=== PATIENT | female | born 1990 | race Hispanic/Latino ===

== ENCOUNTER 2019-01-30 11:47 | Emergency (ER) | payer MEDICAID, SELFPAY ==
[2019-01-30 11:48] VITALS: BP 141/89; PULSE 103; RESP 17; TEMP 36.9; O2SAT 100; BMI 31.4
--- NOTE | 2019-01-30 12:13 | ED.VISSUMM ---
- ER Visit Summary Date of Service: 01/30/19 Chief Complaint: [Vomiting] History of Present Illness: The patient is a 28 F [presents the emergency department with vomiting that started around 6 AM today. Patient denies any diarrhea. Patient states that she think she is thrown up over 100 times. Patient does not believe that she is as she does have an IUD and does not have periods. She denies any abdominal pain. She denies urinary symptoms. She denies any fever. Patient states that her 8-year-old son had a similar illness last week. Patient denies eating any unusual or undercooked foods.] Physical Examination: [HEENT-PERRLA, EOMI. Cranial nerves II through XII grossly intact. TMs clear. Mucous membranes moist. No adenopathy. Cardiovascular-regular rate and rhythm without murmur or ectopy Lungs-clear to auscultation, chest wall stable without crepitus or subcu emphysema Abdomen-normoactive bowel sounds, soft, nontender, no rebound or rigidity, no peritoneal signs. Extremities-intact ?4, normal range of motion, normal pulses, atraumatic] Test Results: [CBC with differential obtained showed a white count of 19.4, hemoglobin 13.9, hematocrit 40, placed 239. Chemistries unremarkable.] Emergency Department Course and Treatment: [Given a liter normal same fluid bolus. Patient was given Phenergan 12.5 mill grams IV. Patient had no further vomiting and she was given a p.o. challenge.] On repeat examination she does not have any abdominal pain. Treatment Plan: [Patient likely has a viral etiology to her vomiting.] Given a prescription for Zofran ODT as well as Phenergan suppositories. Disposition: [Discharged home in stable condition] Impression: [Vomiting-suspect viral etiology] This note was generated with [employer] dictation software. It may contain incorrect words, spelling, and punctuation that were not noted in review of the chart prior to signing ED Disposition - Plan for ED Patient: Referrals: Care Physician,No Primary [Primary Care Provider] -
[2019-01-30 12:27] LABS: Absolute Lymphocyte Count 1.35 X10^3/uL (0.83-4.51); Absolute Neutrophil Count 17.2 X10^3/uL (2.0-7.7); Basophil# 0.04 X10^3/uL; Basophil% 0.2 % (0-1); Eosinophil# 0.05 X10^3/uL; Eosinophils% 0.3 % (0-5); Hematocrit 40.5 % (37-47); Hemoglobin 13.9 g/dL (12.0-15.0); Lymphocyte # 1.35 X10^3/ul (4.0); Mean Corp Hgb Conc 34.3 g/dL (32-36); Mean Corpuscular Hgb 30.5 pg (27.0-32.0); Mean Corpuscular Volume 88.8 fL (81-99); Mean Platelet Vol. 9.8 fl (6.2-12.0); Monocyte# 0.61 X10^3/uL; Monocyte% 3.1 % (0-10); NRBC Flagged by Analyzer 0 % (0-5); Neutrophil # 17.23 X10^3/uL (2.7-7.7); Neutrophil % 88.7 % (47-70); Platelet Count 239 K/mm3 (150-450); RBC Distribution Width CV 12.7 % (11.6-14.6); RBC Distribution Width SD 41.5 fl (35.1-43.9); Red Blood Count 4.56 M/mm3 (4.2-5.4); White Blood Count 19.4 K/mm3 (4.4-11.0)
[2019-01-30] MEDS: proMETHazine 25 MG/ML Syringe 12.5 MG IV (12:27)
[2019-01-30] MEDS: 0.9% Normal Saline 1,000 ML 1000 ML IV (12:27)
[2019-01-30 12:42] LABS: Anion Gap 6 (5-15); BUN 11 mg/dL (7-18); BUN/Creat Ratio 13.3 RATIO (10-20); Calcium,Total 8.8 mg/dL (8.5-10.1); Chloride 110 mmol/L (98-107); Creatinine, Serum 0.83 mg/dL (0.55-1.02); EST Glomerular Filtration Rate 86 mL/min (>60); Est Glom Filt Rate - Afr Amer 104 mL/min (>60); Estimated Creatinine Clearance 71.84 ml/min; Glucose 106 mg/dL (74-106); Potassium 3.8 mmol/L (3.5-5.1); Sodium Level 143 mmol/L (136-145)
--- NOTE | 2019-01-30 13:17 | ED.DEP ---
ED Disposition - Plan for ED Patient: Instructions: DIET, Vomiting or Diarrhea [6yr-Adult], VOMITING (5y-Adult) Prescriptions: proMETHazine suppository [Phenergan Suppository] 25 mg RECTAL Q6H PRN PRN #6 suppos. PRN Reason: Nausea Prescription Printed Ondansetron [Zofran Odt] 4 mg PO Q8H PRN PRN #10 tab PRN Reason: Nausea Prescription Printed Referrals: Care Physician,No Primary [Primary Care Provider] - Ari Calvo MD [STAFF PHYSICIAN] - 3-5 Days
[2019-01-30 13:25] VITALS: BP 116/71; PULSE 80; RESP 16; O2SAT 100
== END 2019-01-30 13:32 | disposition home or self-care (01) ==
LOC: ED 12:50
PROVIDERS: Emergency Provider Emergency Medicine
DX: R11.2 Nausea with vomiting, unspecified (principal); Z97.5 Presence of (intrauterine) contraceptive device
CPT/HCPCS: 80048; 85025; 96361; 96374; 99283; J7030

== ENCOUNTER 2019-05-31 07:08 | Emergency (ER) | payer MEDICAID, SELFPAY ==
[2019-05-31 07:09] VITALS: BP 131/87; PULSE 75; RESP 17; TEMP 36.7; O2SAT 100; BMI 29.2
--- NOTE | 2019-05-31 07:38 | ED.DCSUM_ITS ---
History of Present Illness Chief Complaint: Dental Informant: Patient Onset: Month(s) Context: Gradual Onset Current Severity: Moderate Maximum Severity: Moderate Narrative: Patient presents with right-sided dental pain that is been ongoing for the past couple of months. She does report having a broken tooth on the right upper mouth that is been present for quite some time. She states pain is progressively increased but when she tries to call a dentist everyone is close to right now secondary to the pandemic. She reports going through a bottle of ibuprofen and Tylenol in a week's time period. Past Medical History - Allergies and Home Meds Allergies/Adverse Reactions: Allergies No Known Allergies Allergy (Verified 05/31/19 07:09) Primary Care Physician: Jerrica Doctor,Out of [Primary Care Provider] - Past Medical History: None Lives: With Family Smoking Status: Never smoker Review of Systems General: Denies: Chills, Fever Eyes: Denies: Visual changes - bilaterally ENT: Reports: Right ear pain, - - Right-sided dental pain Cardiovascular: Denies: Chest pain Respiratory: Denies: Dyspnea, Cough Gastrointestinal: Denies: Abdominal pain, Nausea, Vomiting, Diarrhea Skin: Denies: Rash Neurological: Denies: Headache Allergy: Denies: Uticaria Physical Exam Vital Signs/Narrative: Vital Signs Temp Pulse Resp BP Pulse Ox 05/31/19 07:09 98.1 F 75 17 131/87 H 100 Inital Vital Signs reviewed: Yes General: Well nourished, Well developed Head: Normocephalic ENT: Moist mucous membranes, - - Right maxillary and mandibular second molars are decayed with tenderness. Minimal gum edema. No trismus. Posterior pharynx exam is normal. Neck: Supple Cardiovascular: Regular rate, Regular rhythm, No murmurs Respiratory: No distress, CTA bilaterally Abdomen: Soft, Nontender Extremities: Nontender Skin: Normal color Neurological: Alert, Oriented x3 Psychological: Normal affect Diagnostic/Tx/Re-eval - Medical Decision Making To be treated with Pen-Vee K and naproxen. She was warned not to take Aleve or ibuprofen [id number]. She is given dental referral list. I did advise her that [facility] is currently excepting walk-in dental visits during the pandemic. ED Disposition - Plan for ED Patient: Disposition: Home or Assisted Living Diagnosis: Pain, dental Instructions: ED Tooth Pain Prescriptions: Naproxen [Naprosyn] 500 mg PO BID PRN PRN #20 tab PRN Reason: Pain Score 4-10/10 Transmission Status: Pending to [facility] Penicillin V Potassium 500 mg PO 4X/DAY #40 tab Transmission Status: Pending to [facility] Referrals: [facility] Doctor,Out of [Primary Care Provider] - Additional Instructions: Dental list provided. [facility] is accepting dental visits during the current pandemic.
[2019-05-31] MEDS: Penicillin Vk 250 MG Tablet 500 MG PO (07:48)
== END 2019-05-31 07:56 | disposition home or self-care (01) ==
LOC: ED 07:52
PROVIDERS: Emergency Provider Emergency Medicine
DX: K08.89 Other specified disorders of teeth and supporting structures (principal); S02.5XXA Fracture of tooth (traumatic), initial encounter for closed fracture; K02.9 Dental caries, unspecified; X58.XXXA Exposure to other specified factors, initial encounter; Y93.9 Activity, unspecified; Y92.9 Unspecified place or not applicable
CPT/HCPCS: 99283

== ENCOUNTER 2020-05-23 11:10 | Emergency (ER) | payer MEDICAID, SELFPAY ==
[2020-05-23 11:11] VITALS: BP 146/95; PULSE 75; RESP 16; TEMP 36.8; O2SAT 97
--- NOTE | 2020-05-23 11:22 | ED.DCSUM_ITS ---
- ER Visit Summary Date of Service: 05/23/20 Chief Complaint: [Dental pain] History of Present Illness: The patient is a 30 F [presents to the emergency department complaint of pain in her right upper tooth that she has had for several weeks. Patient has made an appointment with a dentist and is scheduled for June 09. Patient states she started having swelling yesterday morning to the upper face. Patient denies any fevers. She denies any trauma to her teeth. Patient is concerned about an infection.] Physical Examination: [HEENT-PERRLA, EOMI. Cranial nerves II through XII grossly intact. TMs clear. Mucous membranes moist. No adenopathy. Dentition- patient has a broken and carried right upper canine tooth #6 that is broken and worn down to the gumline. There are some faint gingival erythema. There is no discrete abscess or fluctuance noted. There is some subtle swelling of the right upper face. No facial erythema or cellulitis noted. Cardiovascular-regular rate and rhythm without murmur or ectopy Lungs-clear to auscultation, chest wall stable without crepitus or subcu emphysema Abdomen-normoactive bowel sounds, soft, nontender, no rebound or rigidity, no peritoneal signs. Extremities-intact ?4, normal range of motion, normal pulses, atraumatic] Test Results: [None indicated] Emergency Department Course and Treatment: [Started on clindamycin p.o.] Treatment Plan: Patient will be treated with clindamycin and advised to keep her appointment with her dentist. She is also given a list of dentists in the area to potentially follow-up with if she can get in sooner. She is advised to return if increasing redness, swelling, or condition should worsen anyway. [] Disposition: [Discharged home in stable condition] Impression: [Dental pain secondary to dental caries and early abscess] This note was generated with [employer] dictation software. It may contain incorrect words, spelling, and punctuation that were not noted in review of the chart prior to signing ED Disposition - Plan for ED Patient: Referrals: Care Physician,No Primary [Primary Care Provider] -
--- NOTE | 2020-05-23 11:24 | ED.DEP ---
ED Disposition - Plan for ED Patient: Instructions: Dental Abscess, ED Dental Cavity Prescriptions: Clindamycin HCl [Cleocin] 300 mg PO Q6H #40 capsule Transmission Status: Pending to [facility] Referrals: Care Physician,No Primary [Primary Care Provider] - Additional Instructions: see a dentist
[2020-05-23] MEDS: Clindamycin HCl 150 MG Capsule 300 MG PO (11:41)
== END 2020-05-23 11:48 | disposition home or self-care (01) ==
LOC: ED 11:37
PROVIDERS: Emergency Provider Emergency Medicine; PCP Registered Nurse
DX: K04.7 Periapical abscess without sinus (principal); K02.9 Dental caries, unspecified; S02.5XXA Fracture of tooth (traumatic), initial encounter for closed fracture; X58.XXXA Exposure to other specified factors, initial encounter; Y93.9 Activity, unspecified; Y92.9 Unspecified place or not applicable
CPT/HCPCS: 99283

== ENCOUNTER 2020-06-29 09:50 | Outpatient (RCR) | payer MEDICAID, SELFPAY ==
[2020-06-29] MEDS: COVID-19 VACC, MRNA(PFIZER)/PF 30 MCG/0.3 ML SYRINGE IM (18:12)
[2020-07-26] MEDS: COVID-19 VACC, MRNA(PFIZER)/PF 30 MCG/0.3 ML SYRINGE IM (16:23)
== END 2020-08-08 23:59 ==
LOC: IMMUN 09:50
PROVIDERS: PCP Registered Nurse; Referring Provider Family Medicine; Visit Provider Family Medicine
DX: Z23 Encounter for immunization (principal)
CPT/HCPCS: 0001A; 0002A; 91300

== ENCOUNTER 2021-04-07 20:03 | Emergency (ER) | payer MEDICAID, SELFPAY ==
[2021-04-07 20:04] VITALS: BP 116/86; PULSE 95; RESP 16; TEMP 35.8; O2SAT 98; BMI 33.6
--- NOTE | 2021-04-07 20:17 | RAD_ITS ---
INDICATION: chest pain for aprox 3 months EXAMINATION/TECHNIQUE: X-RAY - XR Chest 1 View COMPARISON: None. FINDINGS: LINES/DEVICES: None. LUNGS: Symmetric normal lung volumes. No airspace opacity or abnormal interstitial pattern. No nodule or mass. No pleural effusion or pneumothorax. MEDIASTINUM AND CARDIOVASCULAR STRUCTURES: Normal size and contour of the cardiomediastinal silhouette. No evidence of pulmonary vascular congestion. BONES AND SOFT TISSUES: No abnormality within limits of the exam. RAD/Chest 1 View (Portable) IMPRESSION: 1. No radiographic evidence of acute cardiopulmonary disease. Electronically Signed: Jared Gould DO at 21:31 EST ,
--- NOTE | 2021-04-07 20:17 | EKG12_ITS ---
Test Reason : CP Blood Pressure : / mmHG Vent. Rate : 074 BPM Atrial Rate : 074 BPM P-R Int : 106 ms QRS Dur : 074 ms QT Int : 350 ms P-R-T Axes : 024 045 028 degrees QTc Int : 388 ms Sinus rhythm with sinus arrhythmia with short IN Otherwise normal ECG Confirmed by ZAINA HDZ, RAND ([id number]), design editor SITA MARTINEZ ([id number]) on 04/11/2021 9:33:28 AM Referred By: ADA Confirmed By:RAND MAHAJAN MD
--- NOTE | 2021-04-07 20:20 | ED.VIS.CHEST ---
HPI <PRISCILA King - Last Filed: 04/07/21 21:27> History of Present Illness Chief Complaint: Chest Pain Narrative Narrative: 31-year-old female with no past medical history presents with intermittent chest pain for the last month. She gets chest pain in different spots throughout her chest that feels like a strong poking sensation that lasts several minutes. It can occur anytime even when lying down. No aggravating or alleviating factors. It is not exertional or pleuritic. There is no associated shortness of breath, cough, nausea, vomiting, diaphoresis. She has no history of DVT/PE and her only risk factor is the depo shot for control. PFSH <PRISCILA King - Last Filed: 04/07/21 21:27> PFSH Home Medications clindamycin HCl 300 mg PO Q6H #40 capsule 05/23/20 [Rx Last Taken Unknown] Allergy/AdvReac Type Severity Reaction Status Date / Time No Known Allergies Allergy Verified 04/07/21 20:04 Social History Smoking Status: Unknown if ever smoked ROS <PRISCILA King - Last Filed: 04/07/21 21:27> ROS ED ROS Narrative Constitutional: Negative for fever, chills, malaise. Eyes: Negative for visual change. ENT: Negative for sore throat, ear pain, rhinorrhea. CVS: Positive for chest pain negative for palpitations, syncope. Respiratory: Negative for shortness of breath, cough, orthopnea. GI: Negative for abdominal pain, nausea, vomiting, diarrhea, constipation, melena, hematochezia. : Negative for dysuria, hematuria or frequency. Neuro: Negative for headache, motor/sensory dysfunction. Skin: Negative for rash, abscess, or wound. Heme: Negative for easy bruising, bleeding, lymphadenopathy. EXAM <PRISCILA King Last Filed: 04/07/21 21:27> Physical Exam Narrative Exam Narrative: CONST: Patient is sitting in bed, tearful. EYES: Normal inspection. ENT: Normal inspection, moist mucous membranes. NECK: Normal inspection. RESP: No respiratory distress, CTAB. CVS: Regular rate and rhythm, no murmur, no gallop. ABD: Soft and nontender, no guarding or rebound, nondistended. SKIN: Color normal, no rash, warm, dry, intact. EXTREMITIES: Normal appearance, no pedal edema, no calf tenderness. NEURO: Oriented x4. PSYCH: Normal affect. Const Vital Signs: 04/07/21 20:04 04/07/21 20:28 04/07/21 20:31 Temperature 96.5 F L Temperature Source Temporal Pulse Rate 95 96 Respiratory Rate 16 18 Respiratory Effort Normal Blood Pressure 116/86 H 127/95 H Blood Pressure Mean 96 105 Pulse Ox 98 99 Oxygen Delivery Method Room Air Room Air <Dr. Vitaly Berkowitz DO - Last Filed: 04/07/21 21:56> Physical Exam Const Vital Signs: 04/07/21 20:04 04/07/21 20:28 04/07/21 20:31 Temperature 96.5 F L Temperature Source Temporal Pulse Rate 95 96 Respiratory Rate 16 18 Respiratory Effort Normal Blood Pressure 116/86 H 127/95 H Blood Pressure Mean 96 105 Pulse Ox 98 99 Oxygen Delivery Method Room Air Room Air <PRISCILA King - Last Filed: 04/07/21 21:27> Heart Score History: Slightly/Non-Suspicious ECG: Normal Age: </= 45 years Risk Factors: 1 or 2 Risk Factors Troponin: </= Normal Limit Score: 1 MDM <PRISCILA King - Last Filed: 04/07/21 21:27> [facility] MDM Narrative Medical decision making narrative: Patient presents with intermittent chest pain over the last month. She appears well and nontoxic. Vital signs are within normal limits. Her medical exam is unremarkable. EKG is sinus rhythm with no ischemic changes. Basic labs and troponin and D-dimer all WNL. Chest x-ray shows no acute process. Patient was very anxious during the exam and reports a history of worsening anxiety recently. This may be contributing to her symptoms. I recommend she follow-up with her PCP this week and she was discharged in stable condition. Diagnosis 1. Atypical chest pain Lab Data Labs: Laboratory Results - last 24 hr 04/07/21 04/07/21 04/07/21 20:30 20:30 20:30 WBC 13.6 H RBC 4.54 Hgb 13.9 Hct 38.6 MCV 85.0 MCH 30.6 MCHC 36.0 RDW Std Deviation 38.6 RDW Coeff of Luba 12.5 Plt Count 255 MPV 10.1 Immature Gran % (Auto) 0.400 Neut % (Auto) 60.4 Lymph % (Auto) 30.1 [place] % (Auto) 6.8 Eos % (Auto) 2.0 Baso % (Auto) 0.3 Absolute Neuts (auto) 8.2 H Absolute Lymphs (auto) 4.08 Nucleated RBC % 0 D-Dimer Quant (PE/DVT) 0.37 Sodium 138 Potassium 3.4 L Chloride 107 Carbon Dioxide 26.0 Anion Gap 5 BUN 15 Creatinine 0.93 Estim Creat Clear Calc 62.38 Est GFR (MDRD) Af Amer 90 Est GFR (MDRD) Non-Af 75 BUN/Creatinine Ratio 16.2 Glucose 106 Calcium 8.7 Troponin I High Sens 4 Radiography Chest X-Ray - ED: 1 View Diagnostic Testing: Clinical Impression(s) from Imaging Studies Chest X-Ray 04/07/21 20:17 IMPRESSION: 1. No radiographic evidence of acute cardiopulmonary disease. Electronically Signed: Jared Gould DO at 21:31 EST , ED attending interpretation of mobile chest shows normal heart size, no acute infiltrate, edema, or effusion EKG Initial EKG: Attestation: I personally reviewed and interpreted this EKG as follows: Interpretation: Sinus Rhythm Comments: Sinus rhythm with sinus arrhythmia, NM interval 106 ms, QRS duration 74 ms, QTc 388 ms <Dr. Vitaly Berkowitz, - Last Filed: 04/07/21 21:56> [facility] MDM Narrative Medical decision making narrative: Patient was seen and evaluated with the PA. I agree with the work-up and history and physical. This is a 31-year-old female presenting with intermittent chest pains throughout the last month. She does not have any cardiac history. Patient has a history of DVT/PE but is on control. She also admittedly states that she is having anxiety over this. Patient states that she was told that she has a strong family history of cardiac disease. This was not at 31 years old. Patient has a slight leukocytosis at 13.6 but otherwise her CBC is normal and there is no left shift. D-dimer is negative at 0.37. Renal function is normal however potassium is slightly low at 3.4. High-sensitivity troponin is 4. Chest x-ray on my interpretation shows no acute cardiopulmonary process and radiologist agree. Patient symptoms inconsistent with ACS I do not believe she needs a delta troponin. Since her D-dimer is negative I have a low suspicion for PE. Patient was counseled on all findings and is comfortable with discharge home. I recommended that she follow-up with her primary care physician if she still having symptoms of anxiety. She acknowledged understanding. Lab Data Attestation: I reviewed the patient's lab results. Labs: Laboratory Results - last 24 hr 04/07/21 04/07/21 04/07/21 20:30 20:30 20:30 WBC 13.6 H RBC 4.54 Hgb 13.9 Hct 38.6 MCV 85.0 MCH 30.6 MCHC 36.0 RDW Std Deviation 38.6 RDW Coeff of Luba 12.5 Plt Count 255 MPV 10.1 Immature Gran % (Auto) 0.400 Neut % (Auto) 60.4 Lymph % (Auto) 30.1 [place] % (Auto) 6.8 Eos % (Auto) 2.0 Baso % (Auto) 0.3 Absolute Neuts (auto) 8.2 H Absolute Lymphs (auto) 4.08 Nucleated RBC % 0 D-Dimer Quant (PE/DVT) 0.37 Sodium 138 Potassium 3.4 L Chloride 107 Carbon Dioxide 26.0 Anion Gap 5 BUN 15 Creatinine 0.93 Estim Creat Clear Calc 62.38 Est GFR (MDRD) Af Amer 90 Est GFR (MDRD) Non-Af 75 BUN/Creatinine Ratio 16.2 Glucose 106 Calcium 8.7 Troponin I High Sens 4 Radiography Diagnostic Testing: Clinical Impression(s) from Imaging Studies Chest X-Ray 04/07/21 20:17 IMPRESSION: 1. No radiographic evidence of acute cardiopulmonary disease. Electronically Signed: Jared Gould DO at 21:31 EST , Discharge Plan Triage Chief Complaint: Chest Pain ED Provider: Jacqui Thomson Dx/Rx/DC Orders Instructions: ED Chest Pain, Noncardiac Prescriptions: No Action clindamycin HCl 300 MG capsule 300 mg PO Q6H Qty: 40 RF: 0 Primary Care Provider: Khushi Salinas NP Referrals: Khushi Salinas NP, CORRECTIONS IDENTIFICATION TECHNICIAN-C [Primary Care Provider] - Activity Restrictions/Additional Instructions: Today you were seen for chest pain. Your blood work is normal. There is no sign of heart attack or blood clot. Your chest x-ray looked normal. I feel you are safe to go home and follow-up with your primary care doctor this week. Come back to the ER for new or worsening symptoms. Disposition Disposition: Home, Self Care
[2021-04-07 20:28] VITALS: BP 127/95; PULSE 96; RESP 18; O2SAT 99
[2021-04-07 20:48] LABS: Absolute Lymphocyte Count 4.08 X10^3/uL (0.83-4.51); Absolute Neutrophil Count 8.2 X10^3/uL (2.0-7.7); Basophil# 0.04 X10^3/uL; Basophil% 0.3 % (0-1); Eosinophil# 0.27 X10^3/uL; Hematocrit 38.6 % (37-47); Hemoglobin 13.9 g/dL (12.0-15.0); Lymphocyte # 4.08 X10^3/ul (0.83-4.51); Lymphocyte % 30.1 % (19-41); Mean Corpuscular Hgb 30.6 pg (27.0-32.0); Mean Platelet Vol. 10.1 fl (6.2-12.0); Monocyte# 0.92 X10^3/uL; Monocyte% 6.8 % (0-10); NRBC Flagged by Analyzer 0 % (0-5); Neutrophil % 60.4 % (47-70); Platelet Count 255 K/mm3 (150-450); RBC Distribution Width CV 12.5 % (11.6-14.6); RBC Distribution Width SD 38.6 fl (35.1-43.9); Red Blood Count 4.54 M/mm3 (4.2-5.4); White Blood Count 13.6 K/mm3 (4.4-11.0)
[2021-04-07 20:59] LABS: Anion Gap 5 (5-15); BUN 15 mg/dL (7-18); BUN/Creat Ratio 16.2 RATIO (10-20); Calcium,Total 8.7 mg/dL (8.5-10.1); Chloride 107 mmol/L (98-107); Creatinine, Serum 0.93 mg/dL (0.55-1.02); EST Glomerular Filtration Rate 75 mL/min (>60); Est Glom Filt Rate - Afr Amer 90 mL/min (>60); Estimated Creatinine Clearance 62.38 ml/min; Glucose 106 mg/dL (74-106); Potassium 3.4 mmol/L (3.5-5.1); Sodium Level 138 mmol/L (136-145); Troponin-I HS 4 pg/mL (3.0-54.0)
[2021-04-07 21:19] LABS: D-Dimer Quantitative (DVT/PE) 0.37 FEU/ug/m (0.27-0.49)
[2021-04-07 22:07] VITALS: BP 111/72; PULSE 85; RESP 16; O2SAT 98
== END 2021-04-07 22:08 | disposition home or self-care (01) ==
PROVIDERS: Emergency Provider Physician Assistant; PCP Registered Nurse; Visit Provider Physician Assistant
DX: R07.89 Other chest pain (principal); Z79.3 Long term (current) use of hormonal contraceptives
CPT/HCPCS: 71045; 80048; 84484; 85025; 85379; 93005; 99283; A4216

== ENCOUNTER 2022-02-01 04:27 | Emergency (ER) | payer MEDICAID, SELFPAY ==
[2022-02-01 04:28] VITALS: BP 127/86; PULSE 114; RESP 18; TEMP 38.2; O2SAT 98; BMI 33.0
--- NOTE | 2022-02-01 04:34 | EX.ED.DYSGE1 ---
HPI History of Present Illness Chief Complaint: General Illness Narrative Narrative: 31-year-old female here with concern for viral illness. The patient states her symptoms have been constant, severe for the last 2 days. Notes headache started yesterday is frontal in location. Also endorses sore throat. Endorses fever and chills. States has been taking DayQuil with no relief. Patient denies sudden onset or thunderclap headache, denies medical intensive within 1 minute, vomiting, neck pain or stiffness, changes in vision, fever, history malignancy, syncope, seizures. Old chart reviewed: No significant past surgical or medical history noted in the chart PFSH PFS Home Medications metoclopramide HCl 5 mg tablet (Reglan) 5 mg PO Q8H PRN PRN nausea and vomiting #21 tabs 02/01/22 [Rx Last Taken Unknown] oseltamivir 75 mg capsule (Tamiflu) 75 mg PO BID 5 days #10 caps 02/01/22 [Rx Last Taken Unknown] Allergy/AdvReac Type Severity Reaction Status Date / Time No Known Allergies Allergy Verified 02/01/22 04:32 Social History Smoking Status: Never smoker ROS ROS ED ROS Narrative Constitutional: Endorses fever and chills HEENT: Endorses sore throat Neck: Denies neck pain Cardiovascular: Denies chest pain, syncope Respiratory: Denies shortness of breath GI: Denies nausea vomiting or abdominal pain : Denies changes in urinary habits Musculoskeletal: Denies muscle or joint pain Neurologic: Denies numbness weakness or loss of sensation, endorses headache Skin denies rash EXAM Physical Exam Narrative Exam Narrative: Nursing triage notes reviewed, Vital signs reviewed Constitutional: please see mdm HENT: MMM Eyes: Pupils equal round and reactive to light, Extraocular muscles intact Neck: No stridor, no JVD, full neck ROM Lungs: Clear to auscultation, No wheezing or rales. No increased work of breathing, no conversational dyspnea, no accessory muscle use, no nasal flaring. No respiratory distress noted Heart: Regular rate and rhythm, No murmurs, No rubs and No gallops, 2+ distal pulses (radial, femoral, posterior tibial) in all extremities Abdomen: Soft, there is no tenderness, rigidity, rebound or guarding, no obvious peritoneal signs, no palpable pulsatile abdominal masses, no auscultated abdominal bruit : No CVAT Extremities: No edema Neuro: Alert and oriented x3, neuro exam at baseline, cranial nerves II through XII are intact. No pain with extraocular muscle movement. There is negative test of skew. Normal speech. 5 of 5 strength in upper and lower extremities in flexion extension. Intact sensation to light touch in upper and lower extremity dermatomes. No truncal or extremity ataxia. No dysdiadochokinesia. Normal gait. 2+ reflexes. No meningeal signs. Negative Babinski. NIH of 0 Skin: No rash or lesions noted Const Vital Signs: 02/01/22 04:28 02/01/22 04:28 Temperature 100.8 F H Temperature Source Oral Pulse Rate 114 H Respiratory Rate 18 Respiratory Effort Normal Respiratory Pattern Normal Blood Pressure 127/86 H Blood Pressure Mean 99 Pulse Ox 98 Oxygen Delivery Method Room Air MDM MDM MDM Narrative Medical decision making narrative: 31-year-old female here with flu with inflammatory, viral URI symptoms. Patient was initially tachycardic, febrile. Lungs were clear she is in no respiratory distress. She had a nonfocal neurologic exam headache likely secondary to inflammatory milieu secondary to flu. The patient a nonfocal neurologic exam no meningeal signs. Low suspicion for space-occupying lesion, intracranial lesion, subarachnoid hemorrhage, mass or other emergent intracranial process. Gave symptomatic relief in the form of anti-inflammatories headache and nausea medicine and Tylenol. Patient was ambulated here in the emergency department out significant hypoxia she is appropriate for discharge home. she was given a prescription for Tamiflu and reglan. Encouraged home antipyretics, anti-inflammatories and plenty of fluids. Discharge Plan Triage Chief Complaint: General Illness ED Provider: Cole Garvin Dx/Rx/DC Orders Clinical Impression: Influenza Prescriptions: New metoclopramide HCl [Reglan] 5 mg tablet 5 mg PO Q8H PRN PRN (Reason: nausea and vomiting) Qty: 21 0RF oseltamivir [Tamiflu] 75 mg capsule 75 mg PO BID 5 Days Qty: 10 0RF Stand Alone Forms: ED Work / School Excuse Primary Care Provider: Khushi Salinas NP Referrals: Khushi Salinas NP, SHEET MANUFACTURING SUPERVISOR-C [Primary Care Provider] - Activity Restrictions/Additional Instructions: As neededPlease return if you develop difficulty breathing, chest pain or if you lose consciousness. Please take Tylenol, ibuprofen every 6 hours for pain and fever control. Please take Reglan as needed for nausea and vomiting. Please take Tamiflu daily for the next 5 days Disposition Disposition: Home, Self Care
[2022-02-01] MEDS: Metoclopramide 5 MG TABLET PO (05:48)
[2022-02-01] MEDS: Acetaminophen 500 MG Tablet PO (05:49)
[2022-02-01] MEDS: dexAMETHasone 4 MG Tablet PO (05:49)
[2022-02-01] MEDS: Oseltamivir Phosphate 75 MG Capsule PO (05:49)
[2022-02-01] MEDS: Ibuprofen 200 MG Tablet 400 MG PO (05:50)
[2022-02-01 06:33] VITALS: BP 126/82; PULSE 121; RESP 18; TEMP 37.9; O2SAT 97; O2SAT 98
== END 2022-02-01 06:34 | disposition home or self-care (01) ==
PROVIDERS: Emergency Provider Emergency Medicine; PCP Registered Nurse; Visit Provider Emergency Medicine
DX: J11.1 Influenza due to unidentified influenza virus with other respiratory manifestations (principal)
CPT/HCPCS: 99283

== ENCOUNTER 2022-05-31 16:43 | Emergency (ER) | payer MEDICAID, SELFPAY ==
[2022-05-31 16:43] VITALS: BP 135/79; PULSE 99; RESP 16; TEMP 36.6; O2SAT 98; BMI 32.1
--- NOTE | 2022-05-31 16:54 | EDS_ITS ---
HPI History of Present Illness Chief Complaint: Nausea/Vomiting Informant: patient Onset/Context/Timing Onset: Weeks (1 week) Narrative Narrative: Patient is approximate 6 weeks . She reports nausea and vomiting for the past week. She has not developed headache and some slight lower abdominal cramping. No bleeding or spotting. With her 3 prior pregnancies she had problems with vomiting throughout the entire . She called her OTHER SALES SUPPORT WORKER's office today but they could not see her and sent her to the emergency room. PFSH PFSH Medical History no medical history no medical history Home Medications metoclopramide HCl 5 mg tablet (Reglan) 5 mg PO Q8H PRN PRN nausea and vomiting #21 tabs 02/01/22 [Rx Last Taken Unknown] oseltamivir 75 mg capsule (Tamiflu) 75 mg PO BID 5 days #10 caps 02/01/22 [Rx Last Taken Unknown] metoclopramide HCl 10 mg tablet (Reglan) 10 mg PO Q6H PRN nausea and vomiting #20 tabs 05/31/22 [Rx Last Taken Unknown] Allergy/AdvReac Type Severity Reaction Status Date / Time No Known Allergies Allergy Verified 02/01/22 04:32 Social History Smoking Status: Never smoker ROS ROS ED Constitutional Constitutional ED: Denies chills or fever(s) Eyes Eyes: Denies change in vision or discharge from eye(s) ENT ENT ED: Denies discharge from eye(s), rhinorrhea or sore throat Cardiovascular Cardiovascular: Denies chest pain or palpitations Respiratory/Chest Respiratory/Chest: Denies cough or dyspnea Gastrointestinal Gastrointestinal: Reports abdominal pain, nausea and vomiting; Denies diarrhea Genitourinary Genitourinary ED: Denies difficulty urinating or dysuria Musculoskeletal Musculoskeletal: Denies back pain or extremity pain Integumentary Denies Abrasions or rash Neurologic Neurologic: Reports headache(s); Denies weakness Psychiatric Psychiatric: Denies anxiety or depression Allergic/Immunologic Allergic/Immunologic ED: Denies lip swelling or urticaria EXAM Physical Exam Const Vital Signs: 05/31/22 16:43 Temperature 97.8 F Temperature Source Temporal Pulse Rate 99 Respiratory Rate 16 Blood Pressure 135/79 H Blood Pressure Mean 97 Pulse Ox 98 Oxygen Delivery Method Room Air Positive well nourished and well developed General Appearance ED: well developed HEENT Reports normocephalic, head/scalp atraumatic and dry mucous membranes Mouth ED: Yes dry mucous membranes Mouth: dry mucous membranes Eyes PERRL and EOMs intact bilaterally Neck supple Chest Wall inspection of chest normal and palpation of chest normal Resp normal respiratory effort and clear to auscultation bilaterally Cardio regular rate and regular rhythm GI non-tender Auscultation: hypoactive bowel sounds Palpation: soft Extremity normal to inspection Neuro oriented x3 and no sensory deficits noted Sensorium / Orientation: alert Motor Exam: strength 5/5 throughout Psych mental status grossly normal Skin no rashes or lesions noted MDM MDM MDM Narrative Medical decision making narrative: Labwork obtained to evaluate for leukocytosis, anemia, and electrolyte derangement. Urinalysis obtained to evaluate for infection/hematuria. Patient given IV fluids along with Zofran. Lab Data Labs: Laboratory Results - last 24 hr 05/31/22 05/31/22 05/31/22 16:57 17:05 17:05 WBC 14.2 H RBC 4.46 Hgb 13.3 Hct 39.0 MCV 87.4 MCH 29.8 MCHC 34.1 RDW Std Deviation 39.9 RDW Coeff of [place] 12.6 Plt Count 226 MPV 9.9 Immature Gran % (Auto) 0.700 Neut % (Auto) 72.4 H Lymph % (Auto) 19.1 [place] % (Auto) 5.8 Eos % (Auto) 1.8 Baso % (Auto) 0.2 Absolute Neuts (auto) 10.3 H Absolute Lymphs (auto) 2.72 Nucleated RBC % 0 Sodium 136 Potassium 3.3 L Chloride 104 Carbon Dioxide 24.0 Anion Gap 8 BUN 10 Creatinine 0.72 Estim Creat Clear Calc 83.86 Est GFR (MDRD) Af Amer 121 Est GFR (MDRD) Non-Af 100 BUN/Creatinine Ratio 14.0 Glucose 83 Calcium 9.0 Urine Color Yellow Urine Clarity Clear Urine pH 5.0 Ur Specific [place] 1.025 Urine Protein Negative Urine Glucose (UA) Normal Urine Ketones 50 H Urine Occult Blood Negative Urine Nitrite Negative Urine Bilirubin Negative Urine Urobilinogen Normal Ur Leukocyte Esterase 25 H Urine RBC 0 SEEN Urine WBC 0-5 SEEN Ur Squamous Epith Cells 0-5 SEEN Urine Bacteria RARE Urine Mucus RARE Treatment and Re-Evaluation :: CBC reveals white count elevated at 14.2 with 72% neutrophils. Prior lab values have had similar white counts. I suspect this is demargination from vomiting. Chemistry studies significant only for slightly low potassium at 3.3. Urinalysis reveals 50 ketones with no sign of infection. Patient was given ice chips after her Zofran. Unfortunately she had continued vomiting after this. She was then given a dose of Reglan and Benadryl. At this time patient is tolerating p.o. and feels improved. She will be given a prescription for Reglan. Return instructions provided. She is scheduled to see her OTHER SALES SUPPORT WORKER doctor on the . Discharge Plan Triage Chief Complaint: Nausea/Vomiting ED Provider: Zaynab Cordero Dx/Rx/DC Orders Clinical Impression: Vomiting, First trimester Instructions: 1st Trimester, ED Vomiting (Adult) Prescriptions: New metoclopramide HCl [Reglan] 10 mg tablet 10 mg PO Q6H PRN (Reason: nausea and vomiting) Qty: 20 0RF No Action metoclopramide HCl [Reglan] 5 mg tablet 5 mg PO Q8H PRN PRN (Reason: nausea and vomiting) Qty: 21 0RF oseltamivir [Tamiflu] 75 mg capsule 75 mg PO BID 5 Days Qty: 10 0RF Primary Care Provider: Khushi Salinas NP Referrals: Sharmila Monteiro MD [Med Staff - Active Staff] - [facility] appointment Khushi Salinas NP, RAIL CAR MECHANIC-C [Primary Care Provider] - Disposition Disposition: Home, Self Care
[2022-05-31 17:03] LABS: Color, Urine Yellow (Yellow); Glucose, Dipstick Normal (Normal); Ketone-Dipstick 50 mg/dl (Negative); Leukocyte Esterase-Dipstick 25 /ul (Negative); Nitrite-Dipstick Negative (Negative); Occult Blood-Urine Negative /ul (Negative); Protein-Dipstick Negative (Negative); Red Blood Cells-Urine 0 SEEN /hpf (0-5); Specific Gravity, Urine 1.025 (1.002-1.030); Urine Bilirubin Dipstick Negative (Negative); Urine Clarity Clear (Clear); Urine Urobilinogen Normal (Normal)
[2022-05-31] MEDS: 0.9% Normal Saline 1,000 ML 1000 ML IV (17:10)
[2022-05-31] MEDS: Ondansetron 4 MG/2 ML Vial IV (17:10)
[2022-05-31 17:18] LABS: Bacteria RARE /hpf (None Seen); Squamous Epithelial Cells - UA 0-5 SEEN /hpf (5-10); White Blood Cells 0-5 SEEN /hpf (0-5)
[2022-05-31 17:19] LABS: Mucous, Urine RARE /hpf (<or=2+)
[2022-05-31 17:20] LABS: Absolute Lymphocyte Count 2.72 X10^3/uL (0.83-4.51); Absolute Neutrophil Count 10.3 X10^3/uL (2.0-7.7); Basophil# 0.03 X10^3/uL; Basophil% 0.2 % (0-1); Eosinophil# 0.26 X10^3/uL; Eosinophils% 1.8 % (0-5); Hemoglobin 13.3 g/dL (12.0-15.0); Lymphocyte # 2.72 X10^3/ul (0.83-4.51); Lymphocyte % 19.1 % (19-41); Mean Corp Hgb Conc 34.1 g/dL (32-36); Mean Corpuscular Hgb 29.8 pg (27.0-32.0); Mean Corpuscular Volume 87.4 fL (81-99); Mean Platelet Vol. 9.9 fl (6.2-12.0); Monocyte# 0.82 X10^3/uL; Monocyte% 5.8 % (0-10); NRBC Flagged by Analyzer 0 % (0-5); Neutrophil # 10.31 X10^3/uL (2.7-7.7); Neutrophil % 72.4 % (47-70); Platelet Count 226 K/mm3 (150-450); RBC Distribution Width CV 12.6 % (11.6-14.6); RBC Distribution Width SD 39.9 fl (35.1-43.9); Red Blood Count 4.46 M/mm3 (4.2-5.4); White Blood Count 14.2 K/mm3 (4.4-11.0)
[2022-05-31 17:35] LABS: Anion Gap 8 (5-15); BUN 10 mg/dL (7-18); Chloride 104 mmol/L (98-107); Creatinine, Serum 0.72 mg/dL (0.55-1.02); EST Glomerular Filtration Rate 100 mL/min (>60); Est Glom Filt Rate - Afr Amer 121 mL/min (>60); Estimated Creatinine Clearance 83.86 ml/min; Glucose 83 mg/dL (74-106); Potassium 3.3 mmol/L (3.5-5.1); Sodium Level 136 mmol/L (136-145)
[2022-05-31] MEDS: Metoclopramide 10 MG/2 ML Vial IV (18:37)
[2022-05-31] MEDS: DiphenhydrAMINE 50 MG/ML Syringe 12.5 MG IV (18:37)
[2022-05-31 20:31] VITALS: PULSE 87; RESP 18; O2SAT 99
== END 2022-05-31 20:32 | disposition home or self-care (01) ==
PROVIDERS: Emergency Provider Emergency Medicine; PCP Registered Nurse; Visit Provider Emergency Medicine
DX: O21.9 Vomiting of pregnancy, unspecified (principal); Z3A.01 Less than 8 weeks gestation of pregnancy
CPT/HCPCS: 80048; 81001; 85025; 96361; 96374; 96375; 99282; J7030; A4216; J2405

== ENCOUNTER 2022-07-02 13:55 | Outpatient (CLI) | payer MEDICAID, SELFPAY ==
[2022-07-02] MEDS: Lactated Ringers 1,000 ML 999 ML IV (14:13)
[2022-07-02] MEDS: Ondansetron 4 MG/2 ML Vial IV (14:20)
[2022-07-02 14:22] VITALS: BP 132/84; PULSE 92; RESP 16; TEMP 36.3; O2SAT 98; BMI 31.7
[2022-07-02 14:51] LABS: ALB/GLOB Ratio 0.7 RATIO (0.9-2.4); AST(SGOT) 15 U/L (15-37); Alanine Aminotransfer ALT/SGPT 21 U/L (13-56); Albumin, Serum 3.5 g/dL (3.2-5.0); Alkaline Phosphatase 85 U/L (45-117); Anion Gap 7 (5-15); BUN 8 mg/dL (7-18); BUN/Creat Ratio 12.4 RATIO (10-20); Calcium,Total 9.2 mg/dL (8.5-10.1); Chloride 104 mmol/L (98-107); Creatinine, Serum 0.65 mg/dL (0.55-1.02); EST Glomerular Filtration Rate 112 mL/min (>60); Est Glom Filt Rate - Afr Amer 136 mL/min (>60); Estimated Creatinine Clearance 92.89 ml/min; Globulin 4.7 g/dL (2.2-4.2); Glucose 109 mg/dL (74-106); Potassium 3.7 mmol/L (3.5-5.1); Protein, Total 8.2 g/dL (6.4-8.2); Sodium Level 137 mmol/L (136-145); Thyroid Stim Hormone (TSH) 1.62 uIU/mL (0.358-3.74)
== END 2022-07-02 13:56 | disposition home or self-care (01) ==
LOC: MEDOUTP 13:56
PROVIDERS: PCP Registered Nurse; Referring Provider Advanced Practice Midwife; Visit Provider Advanced Practice Midwife
DX: O99.891 Other specified diseases and conditions complicating pregnancy (principal); R11.10 Vomiting, unspecified; Z3A.00 Weeks of gestation of pregnancy not specified
CPT/HCPCS: 96374; 96361; 80053; 84443; J7120; A4216; J2405

== ENCOUNTER 2022-08-02 15:37 | Emergency (ER) | payer MEDICAID, SELFPAY ==
[2022-08-02 15:38] VITALS: BP 106/89; PULSE 113; RESP 18; TEMP 36.6; O2SAT 99; BMI 31.9
--- NOTE | 2022-08-02 16:23 | EDS_ITS ---
HPI HPI - GI History of Present Illness Chief Complaint: Nausea/Vomiting Narrative Narrative: 31-year-old female presenting 15 weeks gestation with nausea and vomiting. She states has had this problem with her previous pregnancies as well. She previously had a Zofran pump on a couple of weeks ago but states it was not working so it was removed. She was seen in the ER previously as well and was given Reglan and Benadryl in the ER and she states it made her want to jump out of her skin and she does not want this again. She does not have any abdominal pain. She does admit to some constipation for the last day or so. No diarrhea. She states she was have a little bit of lower back pain yesterday which resolved. She states she has had confirmed intrauterine . Denies urinary complaints. Denies vaginal bleeding or loss of fluid PFSH PFSH Medical History no medical history Home Medications acetaminophen 325 mg tablet 325 mg PO Q6H PRN Pain 07/02/22 [History Last Taken Unknown] acyclovir 400 mg tablet 400 mg PO DAILY 07/02/22 [History Last Taken Unknown] doxylamine 20 mg-pyridoxine 20 mg tablet,immediate and delayed release (Bonjesta) 1 tab PO BID 07/02/22 [History Last Taken Unknown] ondansetron 4 mg disintegrating tablet 4 mg PO Q8H PRN Nausea 07/02/22 [History Last Taken Unknown] prochlorperazine maleate 5 mg tablet 5 mg PO TID PRN Nausea 07/02/22 [History Last Taken Unknown] polyethylene glycol 3350 17 gram/dose oral powder (Miralax) 17 g PO DAILY PRN constipation #119 grams 08/02/22 [Rx Last Taken Unknown] promethazine 25 mg rectal suppository 25 mg GA Q6H PRN nausea and vomiting #12 ea 08/02/22 [Rx Last Taken Unknown] promethazine 25 mg tablet 25 mg PO TID PRN nausea and vomiting #20 tabs 08/02/22 [Rx Last Taken Unknown] Allergy/AdvReac Type Severity Reaction Status Date / Time No Known Allergies Allergy Verified 08/02/22 15:41 Social History Smoking Status: Never smoker ROS ROS ED Constitutional Constitutional ED: Denies chills or fever(s) ENT ENT ED: Denies rhinorrhea or sore throat Cardiovascular Cardiovascular: Denies chest pain or palpitations Respiratory/Chest Respiratory/Chest: Denies cough or dyspnea Gastrointestinal Gastrointestinal: Reports constipation, nausea and vomiting Genitourinary Genitourinary ED: Denies dysuria or hematuria Musculoskeletal Musculoskeletal: Reports back pain; Denies arthralgias Integumentary Denies abscess Neurologic Neurologic: Denies headache(s) Psychiatric Psychiatric: Denies anxiety or depression Endocrine Endocrinology: Denies polydipsia EXAM Physical Exam Const Vital Signs: 08/02/22 15:38 08/02/22 19:23 Temperature 97.9 F Temperature Source Temporal Pulse Rate 113 H 85 Respiratory Rate 18 21 H Blood Pressure 106/89 H 134/82 H Blood Pressure Mean 94 99 Pulse Ox 99 100 Oxygen Delivery Method Room Air Room Air Positive well nourished General Appearance ED: NAD; Negative for pallor HEENT Reports moist mucous membranes normocephalic Eyes PERRL and EOMs intact bilaterally Resp normal respiratory effort and clear to auscultation bilaterally Auscultation: Negative for rales, rhonchi or wheezes Cardio regular rhythm Rate: tachycardic GI non-tender Neuro CN's II-XII intact bilaterally Sensorium / Orientation: alert Psych mental status grossly normal Skin General Skin Exam: Negative for jaundice or pallor MDM MDM MDM Narrative Medical decision making narrative: Patient presenting with nausea, vomiting. She not have any abdominal pain but she is complaining constipation. No fevers or chills. She is well-appearing. Vitals are stable and she is afebrile. I suspect she is dehydrated since she is tachycardic at 113. No chest pain or shortness of breath. Patient ordered 2 L of normal saline after IV access was obtained. She states that she does not want to to medication regimen because it makes her skin crawl. I cannot determine whether this was Compazine or Reglan that she was given with Benadryl. She states that Zofran was not helping. I did give her an IM dose of Phenergan. CBC to assess white blood cell count, hemoglobin, platelets, differential. CMP to assess liver function, renal function, glucose, anion gap, electrolytes. hCG quantitative is also obtained urinalysis to assess for UTI. CBC shows a leukocytosis of 16.8 however the patient's white blood cell count is typically elevated. This is likely reactive. Hemoglobin hematocrit are stable. Platelets are normal. Renal function electrolytes within normal limits. Liver function normal. Urinalysis negative for infection. hCG is 56,454. On reevaluation the patient's nausea is improved. She feels well. She is seen ambulating in the hallway with stable gait. At this point I think she is stable to be discharged. She is given oral Phenergan and if she cannot take these because of nausea she was given rectal Phenergan suppositories. She also requested something for constipation. Return precautions discussed. Recommendation to follow-up with her TRANSMISSION WORKER as well. Impression: 1. Constipation 2. Hyperemesis gravidarum 3. Dehydration Lab Data Attestation: I reviewed the patient's lab results. Labs: Laboratory Results - last 24 hr 08/02/22 08/02/22 08/02/22 15:45 15:45 15:45 WBC 16.8 H RBC 4.56 Hgb 13.8 Hct 39.8 MCV 87.3 MCH 30.3 MCHC 34.7 RDW Std Deviation 42.5 RDW Coeff of [place] 13.6 Plt Count 230 MPV 10.1 Immature Gran % (Auto) 1.400 H Neut % (Auto) 75.8 H Lymph % (Auto) 16.3 L [place] % (Auto) 4.8 Eos % (Auto) 1.5 Baso % (Auto) 0.2 Absolute Neuts (auto) 12.7 H Absolute Lymphs (auto) 2.74 Nucleated RBC % 0 Sodium 140 Potassium 3.4 L Chloride 105 Carbon Dioxide 26.0 Anion Gap 9 BUN 8 Creatinine 0.57 Estim Creat Clear Calc 105.93 Est GFR (MDRD) Af Amer 156 Est GFR (MDRD) Non-Af 129 BUN/Creatinine Ratio 14.0 Glucose 96 Calcium 9.4 Total Bilirubin 0.40 AST 26 ALT 25 Alkaline Phosphatase 101 Total Protein 7.9 Albumin 3.3 Globulin 4.6 H Albumin/Globulin Ratio 0.7 L HCG, Quant 12428 H Urine Color Urine Clarity Urine pH Ur Specific [place] Urine Protein Urine Glucose (UA) Urine Ketones Urine Occult Blood Urine Nitrite Urine Bilirubin Urine Urobilinogen Ur Leukocyte Esterase Urine RBC Urine WBC Ur Squamous Epith Cells Amorphous Sediment Urine Bacteria Urine Mucus 08/02/22 17:45 WBC RBC Hgb Hct MCV MCH MCHC RDW Std Deviation RDW Coeff of [place] Plt Count MPV Immature Gran % (Auto) Neut % (Auto) Lymph % (Auto) [place] % (Auto) Eos % (Auto) Baso % (Auto) Absolute Neuts (auto) Absolute Lymphs (auto) Nucleated RBC % Sodium Potassium Chloride Carbon Dioxide Anion Gap BUN Creatinine Estim Creat Clear Calc Est GFR (MDRD) Af Amer Est GFR (MDRD) Non-Af BUN/Creatinine Ratio Glucose Calcium Total Bilirubin AST ALT Alkaline Phosphatase Total Protein Albumin Globulin Albumin/Globulin Ratio HCG, Quant Urine Color Yellow Urine Clarity Sl. Cloudy Urine pH 6.5 Ur Specific [place] 1.020 Urine Protein 15 H Urine Glucose (UA) Normal Urine Ketones 50 H Urine Occult Blood 10 H Urine Nitrite Negative Urine Bilirubin Negative Urine Urobilinogen Normal Ur Leukocyte Esterase 100 H Urine RBC 0 SEEN Urine WBC 5-10 SEEN Ur Squamous Epith Cells 5-10 SEEN Amorphous Sediment 1+ Urine Bacteria 1+ Urine Mucus 0 SEEN Discharge Plan Triage Chief Complaint: Nausea/Vomiting ED Provider: Vitaly Berkowitz Dx/Rx/DC Orders Instructions: ED Constipation (Adult), ED Hyperemesis Gravidarum Prescriptions: New polyethylene glycol 3350 [Miralax] 17 gram/dose powder 17 g PO DAILY PRN (Reason: constipation) Qty: 119 0RF promethazine 25 mg tablet 25 mg PO TID PRN (Reason: nausea and vomiting) Qty: 20 0RF promethazine 25 mg suppository 25 mg GA Q6H PRN (Reason: nausea and vomiting) Qty: 12 0RF No Action acetaminophen 325 mg Tablet 325 mg PO Q6H PRN (Reason: Pain) prochlorperazine maleate 5 mg Tablet 5 mg PO TID PRN (Reason: Nausea) acyclovir 400 mg Tablet 400 mg PO DAILY ondansetron 4 mg Tablet,Disintegrating 4 mg PO Q8H PRN (Reason: Nausea) Bonjesta 20-20 mg Tablet,Ir,Delayed Rel,Biphasic 1 tab PO BID Primary Care Provider: Khushi Salinas NP Referrals: Khushi Salinas NP, FAMILY SUPPORT SPECIALIST-C [Primary Care Provider] - Disposition Disposition: Home, Self Care
[2022-08-02 16:32] LABS: Absolute Lymphocyte Count 2.74 X10^3/uL (0.83-4.51); Absolute Neutrophil Count 12.7 X10^3/uL (2.0-7.7); Basophil# 0.04 X10^3/uL; Basophil% 0.2 % (0-1); Eosinophil# 0.25 X10^3/uL; Eosinophils% 1.5 % (0-5); Hematocrit 39.8 % (37-47); Hemoglobin 13.8 g/dL (12.0-15.0); Lymphocyte # 2.74 X10^3/ul (0.83-4.51); Lymphocyte % 16.3 % (19-41); Mean Corp Hgb Conc 34.7 g/dL (32-36); Mean Corpuscular Hgb 30.3 pg (27.0-32.0); Mean Corpuscular Volume 87.3 fL (81-99); Mean Platelet Vol. 10.1 fl (6.2-12.0); Monocyte% 4.8 % (0-10); NRBC Flagged by Analyzer 0 % (0-5); Neutrophil % 75.8 % (47-70); Platelet Count 230 K/mm3 (150-450); RBC Distribution Width CV 13.6 % (11.6-14.6); RBC Distribution Width SD 42.5 fl (35.1-43.9); Red Blood Count 4.56 M/mm3 (4.2-5.4); White Blood Count 16.8 K/mm3 (4.4-11.0)
[2022-08-02] MEDS: 0.9% Normal Saline 1,000 ML 999 ML IV ×2 (16:40→19:47)
[2022-08-02] MEDS: proMETHazine 25 MG/ML Syringe 12.5 MG IM (16:40)
[2022-08-02 16:50] LABS: ALB/GLOB Ratio 0.7 RATIO (0.9-2.4); AST(SGOT) 26 U/L (15-37); Alanine Aminotransfer ALT/SGPT 25 U/L (13-56); Albumin, Serum 3.3 g/dL (3.2-5.0); Alkaline Phosphatase 101 U/L (45-117); Anion Gap 9 (5-15); BUN 8 mg/dL (7-18); Calcium,Total 9.4 mg/dL (8.5-10.1); Chloride 105 mmol/L (98-107); Creatinine, Serum 0.57 mg/dL (0.55-1.02); EST Glomerular Filtration Rate 129 mL/min (>60); Est Glom Filt Rate - Afr Amer 156 mL/min (>60); Estimated Creatinine Clearance 105.93 ml/min; Globulin 4.6 g/dL (2.2-4.2); Glucose 96 mg/dL (74-106); Potassium 3.4 mmol/L (3.5-5.1); Protein, Total 7.9 g/dL (6.4-8.2); Sodium Level 140 mmol/L (136-145)
[2022-08-02 17:06] LABS: hCG Titer Quant., Serum 56454 mIU/mL (1-3)
[2022-08-02 17:51] LABS: Mucous, Urine 0 SEEN /hpf (<or=2+); Red Blood Cells-Urine 0 SEEN /hpf (0-5)
[2022-08-02 17:54] LABS: Color, Urine Yellow (Yellow); Glucose, Dipstick Normal (Normal); Ketone-Dipstick 50 mg/dl (Negative); Leukocyte Esterase-Dipstick 100 /ul (Negative); Nitrite-Dipstick Negative (Negative); Occult Blood-Urine 10 /ul (Negative); Protein-Dipstick 15 mg/dl (Negative); Urine Bilirubin Dipstick Negative (Negative); Urine Clarity Sl. Cloudy (Clear); Urine Urobilinogen Normal (Normal); Urine pH 6.5 (5.0 - 8.0)
[2022-08-02 18:15] LABS: Amorphous Sediment 1+; Squamous Epithelial Cells - UA 5-10 SEEN /hpf (5-10)
[2022-08-02 18:16] LABS: Bacteria 1+ /hpf (None Seen); White Blood Cells 5-10 SEEN /hpf (0-5)
[2022-08-02 19:23] VITALS: BP 134/82; PULSE 85; RESP 21; O2SAT 100
[2022-08-02 20:57] VITALS: BP 116/78; PULSE 99; RESP 20; O2SAT 100
== END 2022-08-02 20:58 | disposition home or self-care (01) ==
PROVIDERS: Emergency Provider Student in an Organized Health Care Education/Training Program; PCP Registered Nurse; Visit Provider Student in an Organized Health Care Education/Training Program
DX: O21.1 Hyperemesis gravidarum with metabolic disturbance (principal); Z3A.15 15 weeks gestation of pregnancy; O99.612 Diseases of the digestive system complicating pregnancy, second trimester; K59.00 Constipation, unspecified
CPT/HCPCS: 80053; 81001; 84702; 85025; 96360; 96361; 96372; 99284; J7030; A4216

== ENCOUNTER 2022-09-05 00:38 | Emergency (ER) | payer MEDICAID, SELFPAY ==
[2022-09-05 00:39] VITALS: BP 118/72; PULSE 114; RESP 16; TEMP 37.2; O2SAT 97; BMI 32.8
--- NOTE | 2022-09-05 01:30 | EX.ED.DYSGE1 ---
HPI History of Present Illness Chief Complaint: Fever Narrative Narrative: 32-year-old female presenting with cough, rhinorrhea, congestion, low-grade fever from home. She states all started yesterday. She had a fever of 101 ?F today. She was not sure what she was allowed to take for a fever since she is 20 weeks . She did not take anything. She took a shower and feels a little bit better. No urinary symptoms. No vaginal complaints. No abdominal pain, nausea, vomiting. She reports she is eating and drinking normally. She making normal urine and stool. PFSH PFSH Medical History no medical history Home Medications acetaminophen 325 mg tablet 325 mg PO Q6H PRN Pain 07/02/22 [History Last Taken Unknown] acyclovir 400 mg tablet 400 mg PO DAILY 07/02/22 [History Last Taken Unknown] doxylamine 20 mg-pyridoxine 20 mg tablet,immediate and delayed release (Bonjesta) 1 tab PO BID 07/02/22 [History Last Taken Unknown] ondansetron 4 mg disintegrating tablet 4 mg PO Q8H PRN Nausea 07/02/22 [History Last Taken Unknown] prochlorperazine maleate 5 mg tablet 5 mg PO TID PRN Nausea 07/02/22 [History Last Taken Unknown] polyethylene glycol 3350 17 gram/dose oral powder (Miralax) 17 g PO DAILY PRN constipation #119 grams 08/02/22 [Rx Last Taken Unknown] promethazine 25 mg rectal suppository [address] Q6H PRN nausea and vomiting #12 ea 08/02/22 [Rx Last Taken Unknown] promethazine 25 mg tablet 25 mg PO TID PRN nausea and vomiting #20 tabs 08/02/22 [Rx Last Taken Unknown] acetaminophen 650 mg tablet,extended release 650 mg PO Q8H PRN fever or pain #30 tabs 09/05/22 [Rx Last Taken Unknown] cephalexin 500 mg capsule 500 mg PO Q12 3 days #6 CAPSULES 09/05/22 [Rx Last Taken Unknown] Allergy/AdvReac Type Severity Reaction Status Date / Time No Known Allergies Allergy Verified 08/02/22 15:41 Social History Smoking Status: Never smoker ROS ROS ED Constitutional Constitutional ED: Reports chills and fever(s) Eyes Eyes: Denies change in vision or diplopia ENT ENT ED: Reports rhinorrhea and sore throat Cardiovascular Cardiovascular: Denies chest pain or palpitations Respiratory/Chest Respiratory/Chest: Denies cough or dyspnea Gastrointestinal Gastrointestinal: Denies abdominal pain, nausea or vomiting Genitourinary Genitourinary ED: Denies dysuria or hematuria Musculoskeletal Musculoskeletal: Reports myalgias Integumentary Denies abscess or Abrasions Neurologic Neurologic: Denies headache(s) or paresthesias Psychiatric Psychiatric: Denies anxiety or depression EXAM Physical Exam Const Vital Signs: 09/05/22 00:39 09/05/22 00:42 09/05/22 02:59 Temperature 99.0 F Temperature Source Oral Pulse Rate 114 H 79 Respiratory Rate 16 16 Respiratory Effort Normal Non-Labored Respiratory Pattern Normal Blood Pressure 118/72 129/78 H Blood Pressure Mean 87 Pulse Ox 97 97 Oxygen Delivery Method Room Air Positive well nourished General Appearance ED: NAD; Negative for pallor HEENT Reports moist mucous membranes HEENT Narrative: Rhinorrhea Eyes PERRL and EOMs intact bilaterally Neck no lymphadenopathy and supple Resp normal respiratory effort and clear to auscultation bilaterally Auscultation: Negative for rales or rhonchi Cardio regular rate and regular rhythm GI normal to inspection, nondistended, normoactive bowel sounds Neuro oriented x3 and CN's II-XII intact bilaterally Sensorium / Orientation: alert Psych mental status grossly normal Skin no rashes or lesions noted and no wounds General Skin Exam: Negative for jaundice or pallor MDM MDM MDM Narrative Medical decision making narrative: Patient presenting with cold-like symptoms. She states I think I have the flu. She states that there were several people sick in her household last week and they all recovered. She is able to eat and drink without any difficulty. She denies nausea or vomiting. She denies a cough. She has body aches, chills, low-grade fevers. I will check a urinalysis. I do not believe she needs blood work. I will give her Tylenol and reevaluate. Feeling better on reevaluation. Urinalysis does show 100 leukocyte esterase, 0-5 squamous epithelial cells, 0-5 white blood cell cells and 2+ bacteria. Given this I will send this for culture and treated with Keflex. She not specifically have any urinary symptoms. I believe this is all just URI symptoms. She will follow-up with her OB or return for any worsening symptoms. Impression: 1. Bacteriuria 2. URI Lab Data Attestation: I reviewed the patient's lab results. Labs: Laboratory Results - last 24 hr 09/05/22 01:40 Urine Color Yellow Urine Clarity Clear Urine pH 6.0 Ur Specific [place] 1.020 Urine Protein Negative Urine Glucose (UA) Normal Urine Ketones Negative Urine Occult Blood Negative Urine Nitrite Negative Urine Bilirubin Negative Urine Urobilinogen Normal Ur Leukocyte Esterase 100 H Urine RBC 0 SEEN Urine WBC 0-5 SEEN Ur Squamous Epith Cells 0-5 SEEN Urine Bacteria 2+ Urine Mucus 0 SEEN Discharge Plan Triage Chief Complaint: Fever ED Provider: Vitaly Berkowitz Dx/Rx/DC Orders Instructions: ED Cystitis Female Adult, ED Viral Syndrome (Adult) Prescriptions: New acetaminophen 650 mg tablet extended release 650 mg PO Q8H PRN (Reason: fever or pain) Qty: 30 0RF cephalexin 500 mg capsule 500 mg PO Q12 3 Days Qty: 6 0RF No Action acetaminophen 325 mg Tablet 325 mg PO Q6H PRN (Reason: Pain) prochlorperazine maleate 5 mg Tablet 5 mg PO TID PRN (Reason: Nausea) acyclovir 400 mg Tablet 400 mg PO DAILY ondansetron 4 mg Tablet,Disintegrating 4 mg PO Q8H PRN (Reason: Nausea) Bonjesta 20-20 mg Tablet,Ir,Delayed Rel,Biphasic 1 tab PO BID polyethylene glycol 3350 [Miralax] 17 gram/dose powder 17 g PO DAILY PRN (Reason: constipation) Qty: 119 0RF promethazine 25 mg tablet 25 mg PO TID PRN (Reason: nausea and vomiting) Qty: 20 0RF promethazine 25 mg suppository [address] Q6H PRN (Reason: nausea and vomiting) Qty: 12 0RF Primary Care Provider: Khushi Salinas NP Referrals: Khushi Salinas NP, WHOLESALE AND RETAIL MERCHANT-C [Primary Care Provider] - Disposition Disposition: Home, Self Care Discharge Date/Time: 09/05/22 03:15
[2022-09-05] MEDS: Acetaminophen 325 MG Tablet 650 MG PO (01:40)
[2022-09-05 01:57] LABS: Mucous, Urine 0 SEEN /hpf (<or=2+); Red Blood Cells-Urine 0 SEEN /hpf (0-5)
[2022-09-05 01:59] LABS: Color, Urine Yellow (Yellow); Glucose, Dipstick Normal (Normal); Ketone-Dipstick Negative (Negative); Leukocyte Esterase-Dipstick 100 /ul (Negative); Nitrite-Dipstick Negative (Negative); Occult Blood-Urine Negative /ul (Negative); Protein-Dipstick Negative (Negative); Urine Bilirubin Dipstick Negative (Negative); Urine Clarity Clear (Clear); Urine Urobilinogen Normal (Normal)
[2022-09-05 02:10] LABS: Bacteria 2+ /hpf (None Seen); Squamous Epithelial Cells - UA 0-5 SEEN /hpf (5-10); White Blood Cells 0-5 SEEN /hpf (0-5)
[2022-09-05 02:59] VITALS: BP 129/78; PULSE 79; RESP 16; O2SAT 97
[2022-09-05] MEDS: Cephalexin 250 MG Capsule 500 MG PO (03:12)
== END 2022-09-05 03:15 | disposition home or self-care (01) ==
PROVIDERS: Emergency Provider Student in an Organized Health Care Education/Training Program; PCP Registered Nurse; Visit Provider Student in an Organized Health Care Education/Training Program
DX: O99.891 Other specified diseases and conditions complicating pregnancy (principal); O99.512 Diseases of the respiratory system complicating pregnancy, second trimester; J06.9 Acute upper respiratory infection, unspecified; Z3A.20 20 weeks gestation of pregnancy; R82.71 Bacteriuria
CPT/HCPCS: 81001; 99283

== ENCOUNTER 2023-01-10 17:50 | Outpatient (CLI) | payer MEDICAID, SELFPAY ==
--- NOTE | 2023-01-10 18:41 | OB.TRI.NOTE ---
HPI - General HPI Narrative ROSALBA CAAL, is a 32 F who presents with decreased movement for the past couple of hours. Denies any contractions, loss of fluid or vaginal bleeding. Maternal Data Information KIRSTIN Calculator Estimated Delivery Date Method Current WG Current Estimate 01/19/23 Manual 38w 5d PFSH PFSH Medical History no medical history Home Medications acetaminophen 325 mg tablet 325 mg PO Q6H PRN Pain 07/02/22 [History Last Taken Unknown] acyclovir 400 mg tablet 400 mg PO DAILY 07/02/22 [History Last Taken Unknown] doxylamine 20 mg-pyridoxine 20 mg tablet,immediate and delayed release (Bonjesta) 1 tab PO BID 07/02/22 [History Last Taken Unknown] ondansetron 4 mg disintegrating tablet 4 mg PO Q8H PRN Nausea 07/02/22 [History Last Taken Unknown] prochlorperazine maleate 5 mg tablet 5 mg PO TID PRN Nausea 07/02/22 [History Last Taken Unknown] polyethylene glycol 3350 17 gram/dose oral powder (Miralax) 17 g PO DAILY PRN constipation #119 grams 08/02/22 [Rx Last Taken Unknown] promethazine 25 mg rectal suppository 25 mg DC Q6H PRN nausea and vomiting #12 ea 08/02/22 [Rx Last Taken Unknown] promethazine 25 mg tablet 25 mg PO TID PRN nausea and vomiting #20 tabs 08/02/22 [Rx Last Taken Unknown] acetaminophen 650 mg tablet,extended release 650 mg PO Q8H PRN fever or pain #30 tabs 09/05/22 [Rx Last Taken Unknown] cephalexin 500 mg capsule 500 mg PO Q12 3 days #6 CAPSULES 09/05/22 [Rx Last Taken Unknown] Allergy/AdvReac Type Severity Reaction Status Date / Time No Known Allergies Allergy Verified 08/02/22 15:41 Social History Smoking Status: Never smoker ROS Eyes Eyes: Denies blurry vision Cardiovascular Cardiovascular: Reports none; Denies chest pain at rest, chest pain with activity or dizziness Respiratory/Chest Respiratory/Chest: Denies cough or dyspnea Gastrointestinal Gastrointestinal: Reports none and other; Denies diarrhea or vomiting Genitourinary Genitourinary: Denies dysuria Musculoskeletal Musculoskeletal: Reports none Integumentary Integumentary: Reports none; Denies rash Neurologic Neurologic: Denies dizziness, headache(s) or other visual disturbances Psychiatric Psychiatric: Reports none Physical Exam Const alert and no apparent distress General Appearance: cooperative Orientation / Consciousness: awake Exam Limitations: no limitations HEENT normocephalic Eyes General Eye: normal appearance of both eyes Neck full ROM Chest inspection of chest normal Resp normal respiratory effort and normal air movement Effort and Inspection: symmetric chest movement Auscultation: clear to auscultation bilaterally Cardio regular rate GI soft to palpation, non-tender and non-distended Inspection: and other Back/Spine normal ROM Extremity full ROM, normal capillary refill and no calf tenderness Skin no rashes or lesions noted Neuro oriented x3 and CN's II-XII intact bilaterally Psych mental status grossly normal NST FHR Rate Baby A Baseline: 140 Variability:: Moderate Accelerations:: 15 x 15 Decelerations:: None NST Reactive:: Yes FHR Category:: Category I Uterine Activity:: Occasional Assessment & Plan (1) Decreased movement: (2) 38 weeks gestation of : PLAN: Plan NST reactive Patient has felt movement and marked on strip since arrival Reassurance provided Kick counts reviewed D/C home with follow up in office
== END 2023-01-10 19:20 | disposition home or self-care (01) ==
LOC: WPOUT 17:56 → WP 17:56
PROVIDERS: PCP Registered Nurse; Referring Provider Advanced Practice Midwife; Visit Provider Advanced Practice Midwife
DX: O36.8130 Decreased fetal movements, third trimester, not applicable or unspecified (principal); Z3A.38 38 weeks gestation of pregnancy
CPT/HCPCS: 59025; 59050

== ENCOUNTER 2023-01-14 07:05 | Inpatient (IN) | payer MEDICAID, SELFPAY ==
[2023-01-10 18:07] VITALS: TEMP 36.7
[2023-01-14] VITALS (58 sets, daily range): BP systolic 105–144; BP diastolic 57–104; PULSE 81–149; RESP 16; TEMP 36.6–36.9; O2SAT 91–100; BMI 33.6
[2023-01-14] MEDS: Lactated Ringers 1,000 ML 50 ML IV (07:45)
[2023-01-14 08:03] LABS: Absolute Neutrophil Count 9.2 X10^3/uL (2.0-7.7); Basophil# 0.04 X10^3/uL; Basophil% 0.3 % (0-1); Eosinophils% 0.8 % (0-5); Hematocrit 38.5 % (37-47); Hemoglobin 12.4 g/dL (12.0-15.0); Lymphocyte % 21.3 % (19-41); Mean Corp Hgb Conc 32.2 g/dL (32-36); Mean Corpuscular Hgb 27.3 pg (27.0-32.0); Mean Corpuscular Volume 84.6 fL (81-99); Mean Platelet Vol. 9.7 fl (6.2-12.0); Monocyte# 0.44 X10^3/uL; Monocyte% 3.5 % (0-10); NRBC Flagged by Analyzer 0 % (0-5); Neutrophil # 9.22 X10^3/uL (2.7-7.7); Neutrophil % 72.6 % (47-70); Platelet Count 317 K/mm3 (150-450); RBC Distribution Width CV 15.6 % (11.6-14.6); RBC Distribution Width SD 46.8 fl (35.1-43.9); Red Blood Count 4.55 M/mm3 (4.2-5.4); White Blood Count 12.7 K/mm3 (4.4-11.0)
[2023-01-14] MEDS: Oxytocin 15 Units/NS 250ml 15 UNITS/250 ML IV.SOLN 2 UNITS IV (08:05)
[2023-01-14] MEDS: Penicillin G Pot 5,000,000 UNITS in 0.9% Normal Saline (100mL MB+) 100 ML 150 UNITS IV (08:05)
[2023-01-14] MEDS: LACTATED RINGERS 500 ML 999 ML IV (08:05)
[2023-01-14] MEDS: Ondansetron 4 MG/2 ML Vial IV ×2 (08:35→12:45)
[2023-01-14 08:36] LABS: Syphilis Antibodies Non-reactive
--- NOTE | 2023-01-14 08:51 | PCM.HP.OB ---
HPI - General General Date of Admission: 01/14/23 Date of Service: 01/14/23 HPI Narrative ROSALBA CAAL, is a 32 F who presents LMP 04/14/2022 (sure dates) KIRSTIN 01/19/2023 now 39 weeks 2 days admitted for elective induction of labor. Maternal Data Information KIRSTIN Calculator Estimated Delivery Date Method Current WG Current Estimate 01/19/23 Manual 39w 2d Final KIRSTIN: 01/19/23 Final KIRSTIN Source: [place] <20 weeks ([place] on 06/10/2022) [facility] Medical History (Updated 01/14/23 @ 17:32 by Ioana Medina CNM) History of blood transfusion History of pre-term labor hemorrhage Home Medications acetaminophen 325 mg tablet 325 mg PO Q6H PRN Pain 07/02/22 [History Last Taken Unknown] acyclovir 400 mg tablet 400 mg PO DAILY hx of shingles 07/02/22 [History Last Taken Unknown] doxylamine 20 mg-pyridoxine 20 mg tablet,immediate and delayed release (Bonjesta) 1 tab PO BID 07/02/22 [History Last Taken Unknown] ondansetron 4 mg disintegrating tablet 4 mg PO Q8H PRN Nausea 07/02/22 [History Last Taken Unknown] prochlorperazine maleate 5 mg tablet 5 mg PO TID PRN Nausea 07/02/22 [History Last Taken Unknown] polyethylene glycol 3350 17 gram/dose oral powder (Miralax) 17 g PO DAILY PRN constipation #119 grams 08/02/22 [Rx Last Taken Unknown] promethazine 25 mg rectal suppository 25 mg MA Q6H PRN nausea and vomiting #12 ea 08/02/22 [Rx Last Taken Unknown] promethazine 25 mg tablet 25 mg PO TID PRN nausea and vomiting #20 tabs 08/02/22 [Rx Last Taken Unknown] acetaminophen 650 mg tablet,extended release 650 mg PO Q8H PRN fever or pain #30 tabs 09/05/22 [Rx Last Taken Unknown] cephalexin 500 mg capsule 500 mg PO Q12 3 days #6 CAPSULES 09/05/22 [Rx Last Taken Unknown] Allergy/AdvReac Type Severity Reaction Status Date / Time No Known Allergies Allergy Verified 01/14/23 11:04 Social History Smoking Status: Never smoker History Elective abortions Hx Para 3 Spontaneous abortions Hx # Term Pregnancies Ectopic pregnancies Hx # Pregnancies Multiple births # of living children NST FHR Rate Baby A Baseline: 125 Variability:: Moderate Accelerations:: 15 x 15 Decelerations:: None FHR Category:: Category I Uterine Activity:: every 3 minutes, moderate ROS Constitutional Constitutional: Reports systems reviewed and no addt'l complaints, except as documented; Denies headache(s) Eyes Eyes: Denies acute decrease in peripheral vision, blurry vision or change in vision ENT HEENT: Reports systems reviewed and no addt'l complaints, except as documented Cardiovascular Cardiovascular: Denies chest pain or dizziness Respiratory/Chest Respiratory/Chest: Denies cough, dyspnea, dyspnea on exertion, shortness of breath at rest or shortness of breath with exertion Gastrointestinal Gastrointestinal: Denies abdominal pain, diarrhea, nausea or vomiting Genitourinary Genitourinary: Denies abdominal discomfort Musculoskeletal Musculoskeletal: Denies limited range of motion Integumentary Integumentary: Reports systems reviewed and no addt'l complaints, except as documented Neurologic Neurologic: Reports systems reviewed and no addt'l complaints, except as documented Psychiatric Psychiatric: Reports systems reviewed and no addt'l complaints, except as documented Endocrine Endocrinology: Reports systems reviewed and no addt'l complaints, except as documented Hematologic/Lymphatic Hematologic/Lymphatic: Reports systems reviewed and no addt'l complaints, except as documented Allergic/Immunologic Allergic/Immunologic: Reports systems reviewed and no addt'l complaints, except as documented Vital Signs Vital Signs Vital Signs: 01/14/23 07:33 01/14/23 07:33 01/14/23 07:34 Temperature Temperature Source Pulse Rate 115 H 128 H Blood Pressure 123/81 H BP Systolic 123 BP Diastolic 81 Pulse Ox 01/14/23 07:34 01/14/23 07:39 01/14/23 07:39 Temperature Temperature Source Pulse Rate 109 H Blood Pressure BP Systolic BP Diastolic Pulse Ox 99 99 01/14/23 07:44 01/14/23 07:44 01/14/23 07:49 Temperature Temperature Source Pulse Rate 111 H 104 H Blood Pressure BP Systolic BP Diastolic Pulse Ox 100 01/14/23 07:49 01/14/23 07:34 01/14/23 07:34 Temperature 98.4 F Temperature Source Temporal Pulse Rate Blood Pressure BP Systolic BP Diastolic Pulse Ox 100 01/14/23 08:38 01/14/23 08:38 01/14/23 08:46 Temperature Temperature Source Pulse Rate 134 H Blood Pressure 134/90 H BP Systolic 134 BP Diastolic 90 Pulse Ox 99 01/14/23 08:46 01/14/23 08:46 01/14/23 08:46 Temperature Temperature Source Pulse Rate 130 H 124 H Blood Pressure BP Systolic BP Diastolic Pulse Ox 99 Physical Exam Const alert and oriented x3 General Appearance: cooperative Orientation / Consciousness: awake, oriented to person, oriented to place and oriented to time Exam Limitations: no limitations HEENT normocephalic Head and Scalp: normal to inspection, normocephalic and atraumatic Face and Sinus: normal facial exam Eyes General Eye: normal appearance of both eyes Neck full ROM Chest Chest: symmetrical chest wall rise Resp normal respiratory effort and normal air movement Auscultation: clear to auscultation bilaterally Cardio regular rate, regular rhythm, S1 normal heart sound, S2 normal heart sound, no murmurs, no rub, no gallops and no clicks GI normal to inspection, nondistended, normoactive bowel sounds and non-tender appearance of the vagina normal Bladder / Kidney Exam: no CVA tenderness Manual OB Exam: estimated gestational size appropriate, presentation cephalic, dilated 5, effaced 60, station -1 and other AROM Amniotic Fluid: clear amniotic fluid Back/Spine normal ROM Extremity normal to inspection and full ROM Skin no rashes or lesions noted Neuro oriented x3 and moves all extremities Sensorium / Orientation: awake, alert and oriented to person Labs Labs Labs: Blood Type O POSITIVE Antibody Screen NEGATIVE Hct 38.5 % (37-47) Hgb 12.4 g/dL (12.0-15.0) Syphilis Total Ab Non-reactive GBS + Gonorrhea negative Chlamydia negative Rubella immune HepB Surface Antigen negative HIV negative HSV 1 positive, vulvar lesion + for Varicella Assessment & Plan (1) 39 weeks gestation of : (2) Elective induction of labor planned: (3) Herpes, 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 suppressive therapy PLAN: Plan Admit to Labor and delivery FHT per protocol Induction of labor with Pitocin and AROM as needed. Oral hydration/IV fluids as needed. Position of comfort, Pain medications/Epidural when in active labor, as pt desires. Admission labs per protocol Antibiotics for GBS positive Encourage position changes Anticipate Spontaneous vaginal delivery Notify Dr. Leyva of patient status
[2023-01-14] MEDS: fentaNYL-bupivacaine (epidural) 100 ML BAG EPIDURAL ×2 (09:02→13:09)
--- NOTE | 2023-01-14 09:28 | NURSING ---
in patient went to ER for being isck and spent hours there in which time her received a bottle and she was never able to latch child again; very interested in this infant but open to formula if needed
[2023-01-14] MEDS: Penicillin G 3,000,000 Units 50 ML 100 UNITS IV (12:45)
--- NOTE | 2023-01-14 14:34 | EX.PCM.OBRPT ---
Maternal Data Information KIRSTIN Calculator Estimated Delivery Date Method Current WG Current Estimate 01/19/23 Manual 39w 2d Vaginal Delivery Maternal Presentation Maternal Presentation: Elective Induction Type of Induction: Pitocin and Amniotomy Operative Information Date of Procedure: 01/14/23 Pre-Operative Diagnosis: Elective Induction of Labor Post-Operative Diagnosis: Surgery / Procedure Performed: Spontaneous Vaginal Delivery Type of Anesthesia: Epidural Drain: Martinez to straight drain (50 ml pat urine) Estimated Blood Loss: 200 ml Time of Delivery: 14:21 Findings Description of Procedure: Progressed to complete with urge to push. Epidural for pain management. of viable male over intact perineum. Apgars 8 and 9 respectively. head delivered with body immediately forthcoming, loose nuchal cord, delivered through. Placed on maternal abdomen, strong cry. Mouth and nares suctioned for secretions. Pitocin started for active 3rd stage management. Cord doubly clamped and cut by father of baby after pulsation ceased. Delayed cord clamping. Placenta delivered intact via [place], 3 vessel cord intact. Perineum inspected and intact. Fundus firm and hemostasis achieved. EBL 200 ml. Mother and baby stable. Planning to breastfeed. Dr. Leyva notified of delivery. Lucia DIGGS present for delivery. Presentation: KHANH Amniotic Membrane Rupture Type: Artificial Time of Membrane Rupture: clear fluid, moderate amount Amniotic Fluid Description: Clear Placental Delivery Description: Spontaneous Cord Vessel Description: 3 Vessels Cord Entanglement: Around neck x 1, loose Nuchal Cord Compression: Without compression A Gender: Male (1 minute): 8 (5 minute): 9 Post Vaginal Delivery Medications Given After Delivery: IV Pitocin Episiotomy Description: None Laceration: None Complication Complications: None
[2023-01-14] MEDS: Oxytocin 15 Units/NS 250ml 15 UNITS/250 ML IV.SOLN 83 UNITS IV (14:58)
--- NOTE | 2023-01-14 16:24 | PCM.NY.DEL ---
Delivery Attendance Service Date: 01/14/23 Physical Exam Apgars/Vital Signs/Weight: Weight: 178 lb 3.2 oz General Weight: 178 lb 3.2 oz
[2023-01-14] MEDS: Ibuprofen 600 MG Tablet PO (17:37)
[2023-01-14] MEDS: Acetaminophen 500 MG Tablet 1000 MG PO (18:42)
[2023-01-15] VITALS (8 sets, daily range): BP systolic 99–123; BP diastolic 57–81; PULSE 77–100; RESP 16–18; TEMP 36.9–37.2
[2023-01-15] MEDS: Ibuprofen 600 MG Tablet PO ×2 (00:13→06:27)
[2023-01-15] MEDS: SimETHICONE 80 MG Chewable Tablet PO (04:59)
[2023-01-15 05:02] LABS: Absolute Lymphocyte Count 3.32 X10^3/uL (0.83-4.51); Absolute Neutrophil Count 9.4 X10^3/uL (2.0-7.7); Basophil# 0.04 X10^3/uL; Basophil% 0.3 % (0-1); Eosinophil# 0.12 X10^3/uL; Eosinophils% 0.9 % (0-5); Hematocrit 31.8 % (37-47); Hemoglobin 10.4 g/dL (12.0-15.0); Lymphocyte # 3.32 X10^3/ul (0.83-4.51); Lymphocyte % 24.1 % (19-41); Mean Corp Hgb Conc 32.7 g/dL (32-36); Mean Corpuscular Hgb 27.7 pg (27.0-32.0); Mean Corpuscular Volume 84.8 fL (81-99); Mean Platelet Vol. 9.5 fl (6.2-12.0); Monocyte# 0.76 X10^3/uL; Monocyte% 5.5 % (0-10); NRBC Flagged by Analyzer 0 % (0-5); Neutrophil # 9.39 X10^3/uL (2.7-7.7); Platelet Count 293 K/mm3 (150-450); RBC Distribution Width CV 15.7 % (11.6-14.6); RBC Distribution Width SD 47.8 fl (35.1-43.9); Red Blood Count 3.75 M/mm3 (4.2-5.4); White Blood Count 13.8 K/mm3 (4.4-11.0)
[2023-01-15] MEDS: Acetaminophen 500 MG Tablet 1000 MG PO ×2 (05:10→11:12)
--- NOTE | 2023-01-15 08:14 | DS.PCM_ITS ---
Providers Date of Admission: 01/14/23 Primary Care Physician: DEXTER Thompson Reason For Visit: VAGINAL DELIVERY Diagnosis Discharge Diagnosis (1) 39 weeks gestation of : Status: Acute Code(s): Z3A.39 - 39 weeks gestation of (2) Herpes, vulvar: Status: Acute Code(s): A60.04 - Herpesviral vulvovaginitis (3) (spontaneous vaginal delivery): Status: Acute Code(s): O80 - Encounter for full-term uncomplicated delivery (4) Care and examination of lactating mother: Status: Acute Code(s): Z39.1 - Encounter for care and examination of lactating mother Medications at Discharge Home Medications acetaminophen 325 mg tablet 325 mg PO Q6H PRN Pain 07/02/22 acyclovir 400 mg tablet 400 mg PO DAILY hx of shingles 07/02/22 doxylamine 20 mg-pyridoxine 20 mg tablet,immediate and delayed release (Bonjesta) 1 tab PO BID 07/02/22 ondansetron 4 mg disintegrating tablet 4 mg PO Q8H PRN Nausea 07/02/22 prochlorperazine maleate 5 mg tablet 5 mg PO TID PRN Nausea 07/02/22 polyethylene glycol 3350 17 gram/dose oral powder (Miralax) 17 g PO DAILY PRN constipation #119 grams 08/02/22 promethazine 25 mg rectal suppository 25 mg MN Q6H PRN nausea and vomiting #12 ea 08/02/22 promethazine 25 mg tablet 25 mg PO TID PRN nausea and vomiting #20 tabs 08/02/22 acetaminophen 650 mg tablet,extended release 650 mg PO Q8H PRN fever or pain #30 tabs 09/05/22 cephalexin 500 mg capsule 500 mg PO Q12 3 days #6 CAPSULES 09/05/22 Hospital Course Operations None Procedures None Summary of Care Provided Minutes Spent on Discharge: 20 Hospital Course: Patient for . Hospital course was uneventful. Physical Exam Const alert and no apparent distress General Appearance: cooperative and comfortable Exam Limitations: no limitations HEENT normocephalic Eyes General Eye: normal appearance of both eyes Neck full ROM General: normal visual inspection Chest Chest: symmetrical chest wall rise Resp normal respiratory effort and normal air movement Effort and Inspection: symmetric chest movement Auscultation: clear to auscultation bilaterally Cardio regular rate and regular rhythm GI normal to inspection, nondistended, normoactive bowel sounds Back/Spine normal ROM Extremity full ROM and no calf tenderness General Extremity: normal exam except as noted Skin no rashes or lesions noted Neuro CN's II-XII intact bilaterally Psych mental status grossly normal Weight / BMI Weight Weight: 178 lb 3.2 oz Body Mass Index (BMI) 33.6 ABG / Lab / Microbiology Data 01/15/23 04:55 Laboratory: Laboratory Results - last 24 hr 01/14/23 07:45: Syphilis Total Ab Non-reactive, Blood Type O POSITIVE, Antibody Screen NEGATIVE 01/15/23 04:55: WBC 13.8 H, RBC 3.75 L, Hgb 10.4 L, Hct 31.8 L, MCV 84.8, MCH 27.7, MCHC 32.7, RDW Std Deviation 47.8 H, RDW Coeff of [place] 15.7 H, Plt Count 293, MPV 9.5, Immature Gran % (Auto) 1.200 H, Neut % (Auto) 68.0, Lymph % (Auto) 24.1, [place] % (Auto) 5.5, Eos % (Auto) 0.9, Baso % (Auto) 0.3, Absolute Neuts (auto) 9.4 H, Absolute Lymphs (auto) 3.32, Nucleated RBC % 0 D/C Instructions Discharge Diet: No restrictions May resume sexual activity in: 6-8 weeks Weight Bearing Status: Weight bearing as tolerated Call your doctor if you observe: Fever of 101 or Higher, Inability to urinate, Using more than 1 pad per hour, Shortness of breath, Chest pain, Calf discomfort and Uncontrolled pain Please Follow Up With: Lucero Jama CNM When: 2 weeks virtual visit/ 6 weeks in office Discharge Plan Admission Admit Date/Time: 01/14/23 07:05 Primary Reason for Your Visit: Labor and Delivery Attending Provider: Ioana Medina Primary Care Provider: Khushi Salinas NP Discharge Orders/Prescriptions Prescriptions: No Action acetaminophen 325 mg Tablet 325 mg PO Q6H PRN (Reason: Pain) prochlorperazine maleate 5 mg Tablet 5 mg PO TID PRN (Reason: Nausea) acyclovir 400 mg Tablet 400 mg PO DAILY ondansetron 4 mg Tablet,Disintegrating 4 mg PO Q8H PRN (Reason: Nausea) Bonjesta 20-20 mg Tablet,Ir,Delayed Rel,Biphasic 1 tab PO BID polyethylene glycol 3350 [Miralax] 17 gram/dose powder 17 g PO DAILY PRN (Reason: constipation) Qty: 119 0RF promethazine 25 mg tablet 25 mg PO TID PRN (Reason: nausea and vomiting) Qty: 20 0RF promethazine 25 mg suppository 25 mg MN Q6H PRN (Reason: nausea and vomiting) Qty: 12 0RF acetaminophen 650 mg tablet extended release 650 mg PO Q8H PRN (Reason: fever or pain) Qty: 30 0RF cephalexin 500 mg capsule 500 mg PO Q12 3 Days Qty: 6 0RF Referrals / Follow Up: Khushi Salinas NP, MOTOR COACH SUPERVISOR-C [Primary Care Provider] -
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
== END 2023-01-15 17:00 | disposition home or self-care (01) | DRG 560 ==
PROVIDERS: Obstetrics & Gynecology; Admitting Provider Advanced Practice Midwife; PCP Registered Nurse; Referring Provider Advanced Practice Midwife; Visit Provider Advanced Practice Midwife
DX: O69.81X0 Labor and delivery complicated by cord around neck, without compression, not applicable or unspecified (principal); Z37.0 Single live birth; O99.824 Streptococcus B carrier state complicating childbirth; Z3A.39 39 weeks gestation of pregnancy; Z87.59 Personal history of other complications of pregnancy, childbirth and the puerperium
CPT/HCPCS: 59025; 59050; 85025; 86780; 86850; 86900; 86901; 99221; J7120; G0378; J2405

== ENCOUNTER 2024-07-07 07:55 | Emergency (ER) | payer MEDICAID, SELFPAY ==
[2024-07-07 07:57] VITALS: BP 124/90; PULSE 86; RESP 15; TEMP 37.1; O2SAT 100; BMI 32.1
--- NOTE | 2024-07-07 08:18 | ED.VIS.DENTA ---
HPI History of Present Illness Chief Complaint: Dental Informant: patient Narrative Narrative: Patient is a 34-year-old female with no significant past history presenting with approximately 2 days of left upper dental discomfort as well as cheek swelling. She is her symptoms started yesterday. She is taken 400 mg of ibuprofen every 4 hours significant help. She has had it at 6 AM. She notes couple days before that she felt her nose was little stuffy and had a hard time breathing through her nose. Does see a dentist in [place]. Does not use tobacco. Denies difficulty swallowing or change in speech. No fevers or chills reported. No other complaints or concerns at this time. [facility] Medical History Care and examination of lactating mother (spontaneous vaginal delivery) Herpes, vulvar Elective induction of labor planned 39 weeks gestation of History of pre-term labor hemorrhage History of blood transfusion Home Medications ?Medication ?Instructions ?Recorded ?Last Taken ?Type acetaminophen 500 mg tablet 1,000 mg (2 x 500 mg) PO Q6H PRN 01/15/23 Unknown Rx PRN Pain 1-10 Or Fever #0 tabs ibuprofen 600 mg tablet 600 mg PO Q6H PRN PRN Pain Score 01/15/23 07/07/24 Rx 1-3 #0 tabs amoxicillin 875 mg-potassium 1 tab PO BID #20 tabs 07/07/24 Unknown Rx clavulanate 125 mg tablet Allergy/AdvReac Type Severity Reaction Status Date / Time No Known Allergies Allergy Verified 07/07/24 08:16 Social History Smoking Status: Never smoker ROS ROS ED Constitutional Constitutional ED: Denies chills or fever(s) ENT ENT ED: Reports other Details: Left upper dental pain, left cheek pain and swelling ; Denies rhinorrhea or sore throat Cardiovascular Cardiovascular: Denies chest pain or palpitations Respiratory/Chest Respiratory/Chest: Denies cough or dyspnea Gastrointestinal Gastrointestinal: Denies nausea or vomiting Integumentary Denies rash Neurologic Neurologic: Denies weakness EXAM Physical Exam Const Vital Signs: 07/07/24 07:57 07/07/24 08:26 Temperature 98.8 F 98.0 F Temperature Source Oral Pulse Rate 86 86 Respiratory Rate 15 16 Blood Pressure 124/90 H 124/90 H Blood Pressure Mean 101 101 Pulse Ox 100 99 Oxygen Delivery Method Room Air Positive well nourished and well developed General Appearance ED: well developed and NAD HEENT Reports TM's clear HEENT Narrative: Patient has tenderness with inflammation of the gumline of the left upper first molar, tooth 14. No associated abscess or fluctuance present. Mild swelling and tenderness over the left cheek. No associated skin changes/induration or cellulitis. No associated trismus or drooling. Sublingual mucosa is soft. Tympanic Membrane ED: Yes TM's clear Mouth ED: Yes oral and palatal mucosa normal Mouth: oral and palatal mucosa normal Teeth and Gingiva: abnormal tooth and associated gingiva Positive for tenderness and caries Throat: posterior oropharynx normal Eyes PERRL and EOMs intact bilaterally Neck supple Neck Narrative: Normal range of motion Chest Wall inspection of chest normal and palpation of chest normal Resp normal respiratory effort and clear to auscultation bilaterally Cardio regular rate and regular rhythm Neuro oriented x3 Sensorium / Orientation: alert Motor Exam: Negative for general weakness Psych mental status grossly normal Skin no rashes or lesions noted MDM MDM MDM Narrative Medical decision making narrative: Patient's evaluated for left-sided upper dental pain with associated cheek swelling and tenderness. She does have an area of acute inflammation noted along the gumline around approximately tooth 14 and I suspect this is a dental infection. We started on Augmentin. Also given a dose of Tylenol in the emergency room. Will follow-up with her dentist. Her airway is intact and there is no drainable abscess at this time. I do not think she requires IV antibiotics or CT imaging. Is instructed alternate ibuprofen and Tylenol at home. Given return precautions. Discharged home in stable condition. Vital signs are normal in the emergency room. Discharge Plan Triage Chief Complaint: Dental ED Provider: Mel Sotelo Dx/Rx/DC Orders Clinical Impression: Dental infection, Left facial pressure and pain Instructions: ED Dental Abscess Prescriptions: New amoxicillin-pot clavulanate 875-125 mg tablet 1 tab PO BID Qty: 20 0RF No Action acetaminophen 500 mg Tablet 1,000 mg PO Q6H PRN PRN (Reason: Pain 1-10 Or Fever) Qty: 0 0RF ibuprofen 600 mg Tablet 600 mg PO Q6H PRN PRN (Reason: Pain Score 1-3) Qty: 0 0RF Primary Care Provider: Yael Viveros NP Referrals: Yael Viveros NP, UTILIZATION COORDINATOR-C [Primary Care Provider] - Activity Restrictions/Additional Instructions: As we discussed you may alternate ibuprofen with Tylenol for pain control. Follow-up with your dentist. Take antibiotics as prescribed. Return if you have progression worsening of your symptoms or further concerns. Print Language: Slovak Disposition Disposition: Home, Self Care Discharge Date/Time: 07/07/24 08:30
[2024-07-07] MEDS: Amox/Clavulanate 875 MG Tablet PO (08:22)
[2024-07-07] MEDS: Acetaminophen 325 MG Tablet 650 MG PO (08:22)
[2024-07-07 08:26] VITALS: BP 124/90; PULSE 86; RESP 16; TEMP 36.7; O2SAT 99
== END 2024-07-07 08:30 | disposition home or self-care (01) ==
PROVIDERS: Emergency Provider Emergency Medicine; PCP Nurse Practitioner Family; Visit Provider Emergency Medicine
DX: K04.7 Periapical abscess without sinus (principal); R51.9 Headache, unspecified
CPT/HCPCS: 99282

== ENCOUNTER 2024-07-10 14:15 | Emergency (ER) | payer MEDICAID, SELFPAY ==
[2024-07-10 14:16] VITALS: BP 130/96; PULSE 94; RESP 16; TEMP 37.1; O2SAT 95; BMI 32.5
--- NOTE | 2024-07-10 14:52 | EDS_ITS ---
HPI History of Present Illness Chief Complaint: General Illness Detail of Chief Complaint: Congestion, headache, photophobia, N/V/D Informant: patient Onset/Context/Timing Onset: Yesterday Context: Sudden Onset Timing: Continuous Quality: Pain Location: Mid central forehead all the way back to the occiput/neck Current Severity: Moderate Maximum Severity: Severe Worsened by: Nothing specific Relieved by: Feels she can control if she leans forward and holds her forehead with her Associated Symptoms Associated Symptoms: HPI narrative Narrative Narrative: Patient is a 34-year-old woman. She has history of depression, anemia affecting , seen on July [address] Sotelo's note was reviewed. She presents because of headache that started last evening. It is central mid forehead radiate all the way back to the posterior neck. She states she is sensitive to light and sound. She does not have history of migr aubrey. There is family history of migraine headaches. She has had headaches in the past but is never had a workup. She does endorse congestion that started several days ago. She does endorse nausea, vomiting diarrhea. Diarrhea is brown. She denies hematemesis or coffee-ground emesis. When asked if she has myalgias arthralgias her response was I do not have the flu . Patient denies orthostatic symptoms. She denies double vision loss of vision. Eyes regulars decreased use. She does endorse thirst and dry mouth. She states not able to eat or drink things without vomiting. She has not noted a rash. She denies neck stiffness. She has not had a menstrual period in years. She has an IUD in place. Prior similar symptoms: No Recent Illness/Hospitalization: No PFSH PFS Medical History Care and examination of lactating mother (spontaneous vaginal delivery) Herpes, vulvar Elective induction of labor planned 39 weeks gestation of History of pre-term labor hemorrhage History of blood transfusion Home Medications ?Medication ?Instructions ?Recorded ?Last Taken ?Type acetaminophen 500 mg tablet 1,000 mg (2 x 500 mg) PO Q 6H PRN 01/15/23 07/10/24 Rx PRN Pain 1-10 Or Fever #0 tabs amoxicillin 875 mg-potassium 1 tab PO BID #20 tabs 09/2407/10/24 Rx clavulanate 125 mg tablet Allergy/AdvReac Type Severity Reaction Status Date / Time No Known Allergies Allergy Verified 07/10/24 14:16 Social History Smoking Status: Never smoker ROS ROS ED Constitutional Constitutional ED: Denies chills, fever(s), subjective, sweats or weight loss Eyes Eyes: Reports other Details: Photophobia ; Denies blurry vision, change in vision or diplopia ENT ENT ED: Reports other Details: Congestion and sonophobia ; Denies ear pain, rhinorrhea or sore throat Cardiovascular Cardiovascular: Denies chest pain, orthopnea, palpitations, paroxysmal nocturnal dyspnea or racing heartbeat Respiratory/Chest Respiratory/Chest: Denies cough, dyspnea, dyspnea on exertion, orthopnea or paroxysmal nocturnal dyspnea Gastrointestinal Gastrointestinal: Reports diarrhea, nausea and vomiting; Denies abdominal pain, constipation or melena Genitourinary Genitourinary ED: Denies dysuria, hematuria or urinary frequency Musculoskeletal Musculoskeletal: Reports neck pain; Denies arthralgias or myalgias Integumentary Denies Abrasions or rash Neurologic Neurologic: Reports headache(s); Denies paresthesias or weakness Psychiatric Psychiatric: Denies anxiety or depression Endocrine Endocrinology: Denies cold intolerance or heat intolerance Allergic/Immunologic Allergic/Immunologic ED: Reports mouth swelling EXAM Physical Exam Const Vital Signs: 07/10/24 14:16 Temperature 98.8 F Temperature Source Oral Pulse Rate 94 Respiratory Rate 16 Blood Pressure 130/96 H Blood Pressure Mean 107 Pulse Ox 95 Oxygen Delivery Method Room Air Positive well nourished and well developed Constitutional Narrative: Patient does not appear well. She not appear toxic General Appearance ED: well developed; Negative for cyanotic, diaphoretic or pallor HEENT Reports dry mucous membranes HEENT Narrative: Head is atraumatic normocephalic. Ears normal. External auditory canal normal. TMs normal. Nares patent with no discharge. She has no frontal or maxillary sinus tenderness. Posterior pharynx out erythema or exudate. Uvula midline. No deviation with protrusion. Mouth ED: Yes dry mucous membranes Mouth: dry mucous membranes Eyes PERRL and EOMs intact bilaterally Eyes Narrative: There is no nystagmus. There is no APD. General Eye ED: Negative for pale conjunctiva or scleral icterus Neck no lymphadenopathy, supple and no JVD Resp normal respiratory effort and clear to auscultation bilaterally Cardio regular rate, regular rhythm, S1 normal heart sound, S2 normal heart sound and no murmurs GI normal to inspection, nondistended, normoactive bowel sounds, non-tender, non- distended and no masses Extremity normal to inspection General Extremety ED: Negative for edema or tenderness General Extremity: Negative for edema Neuro oriented x3 and CN's II-XII intact bilaterally Neuro Narrative: GCS is 15. There is no dysmetria. There is no clonus Babinski sign. Patella, ankle bicep, brachialis, and tricep DTRs are 2+. Sensorium / Orientation: alert Motor Exam: strength 5/5 throughout Psych Mood & Affect: depressed Skin no rashes or lesions noted, no wounds and skin turgor normal General Skin Exam: elasticity normal; Negative for jaundice or pallor MDM MDM MDM Narrative Medical decision making narrative: With nausea vomiting diarrhea suspect viral illness. This may have triggered a vascular headache. Since clinically she is dehydrated she will receive 1 L of normal saline. She was treated with Benadryl, Reglan and Toradol for her head ache. Will reassess after IV fluids have infused. Treatment and Re-Evaluation :: Patient was reassessed at 1606. Patient's headaches resolved. Nausea vomiting is resolved. States she is use the restroom. Plan is to discharge to home Discharge Plan Triage Chief Complaint: General Illness Other Complaint: Diarrhea Headache ED Provider: Donell Thomson Dx/Rx/DC Orders Clinical Impression: Intractable vascular headache, Nausea, vomiting and diarrhea, Acute dehydration Instructions: ED, Migraine (Classical) Prescriptions: No Action acetaminophen 500 mg Tablet 1,000 mg PO Q6H PRN PRN (Reason: Pain 1-10 Or Fever) Qty: 0 0RF amoxicillin-pot clavulanate 875-125 mg tablet 1 tab PO BID Qty: 20 0RF Primary Care Provider: Yael Viveros NP Referrals: Yael Viveros NP, NONPROFIT DIRECTOR-C [Primary Care Provider] - As Needed Print Language: Azeri Disposition Disposition: Home, Self Care
[2024-07-10] MEDS: 0.9% Normal Saline (1000mL) 1,000 ML 999 ML IV (15:01)
[2024-07-10] MEDS: Ketorolac 15 MG/ML Vial IV (15:02)
[2024-07-10] MEDS: DiphenhydrAMINE 50 MG/ML Syringe 25 MG IV (15:02)
[2024-07-10] MEDS: Metoclopramide 10 MG/2 ML Vial IV (15:02)
[2024-07-10 16:16] VITALS: BP 123/80; PULSE 78; RESP 16; O2SAT 98
[2024-07-10 16:23] VITALS: BP 118/67; PULSE 68; RESP 14; TEMP 36.6; O2SAT 100
== END 2024-07-10 16:27 | disposition home or self-care (01) ==
PROVIDERS: Emergency Provider Emergency Medicine; PCP Nurse Practitioner Family; Visit Provider Emergency Medicine
DX: G44.1 Vascular headache, not elsewhere classified (principal); E86.0 Dehydration; R19.7 Diarrhea, unspecified; R11.2 Nausea with vomiting, unspecified
CPT/HCPCS: 96361; 96374; 96375; 99285; A4216